=== PATIENT | female | born 1990 | race Caucasian/White ===

== ENCOUNTER 2016-05-31 20:18 | Emergency (ER) | payer MEDICAID ==
[~2016-05-31] VITALS: Ht 175.3 cm; Wt 74.8 kg
[~2016-05-31 20:18] MED LIST: AMOXICILLIN 50500 MG PO; AUGMENTIN 500 M1 TAB PO; BACTRIM DS 8001 TAB PO; IBU-8800 MG PO; LORTAB 5/500 501 TAB PO; MEDROL 4MG. DOSE4 MG PO; NOMEDS; PHENERGAN 25MG.25 M1 PO; PROTONIX40 MG PO; VOLTAREN75 MG PO
--- NOTE | 2016-05-31 20:40 | Urgent Treatment Center Report ---
History of Present Issue Date/Time Seen by Provider 05/31/162036 Visit Reason Pt arrived:Wheelchair Presenting Problem:PT STATES SHE WAS CLIMBING ON A WALL TO GET A STICK WHEN SHE FELL AND LANDED ON HER LEFT HEEL. STATES HAPPENED APPROX 1999 Location if Accident:Home Onset of symptoms date/time:05/31/16 or onset unknown for: Have you (or family members/close friends) recently traveled outside the [place]? N If Yes, where/when: Have you had exposure to infectious disease within the past month? TB? Other? Specify: Source patient Exam Limitations no limitations Comment 25-year-old female presents for LEFT foot pain. Patient states she was climbing up a wall to get a prescription for her nephew and was falling and new if she felt Eros actually hit her head so she came straight down on her LEFT heel. Now complains of LEFT heel pain and is unable to stand on LEFT foot. ALLERGIES Coded Allergies: Penicillins (05/31/16) acetaminophen (From TYLENOL-CODEINE #3) (05/31/16) amoxicillin (05/31/16) codeine (From TYLENOL-CODEINE #3) (05/31/16) Home Medications Reported Medications No Home Medications (NO HOME MEDICATIONS) History Medical History General CAD? No Angina: No [place]: No Hypertension? No Hyperlipidemia? No CHF? No DVT? No PE? No COPD? No Asthma? Yes Anemia? No GERD? No Gastric ulcers? No GI Bleed? No Hernia? No Thyroid Problems? No Hypothyroidism? No CVA? No Seizures? No Diabetes? No Renal Insuffiency? No UTI? No Stones? No BPH? No GB Disease: No Nephritic Syndrome? No Asplenia? No Hepatitis? No Sickle Cell Disease? No Arthritis? No Migraines? No Cataracts? No Glaucoma? No MRSA? No HIV? No TB? No Anxiety? No Depression? No Cancer? 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 2 or more SIRS Criteria Met? B/P:127/86 MAP:99 Creatinine >2.0? UA output<0.5ml/kg/hr for 2 hrs? Platelet count >100,000? Lactate >2.0mmol/1? INR >1.2 or PTT > than 60 sec? Evidence of Organ Dysfunction? Provider documented clinical suspician of infection? Sepsis Criteria Count: 1 Sepsis Risk: General Appearance normal appearance, mild distress Respiratory Status Yes: trachea midline, chest symmetrical. No: respiratory distress. Cardiovascular normal exam, regular rate/rhythm, no peripheral edema, normal peripheral pulses Extremities limited range of motion, LEFT heel tender to palpate. No redness or swelling noted. Neurologic alert, normal exam, oriented x 3 Medical Decision Making LABS/Meds/Orders Pt receiving controlled substance in ED? No Results/Orders Orders Procedure Date/time Status FOOT-LT-3 VIEWS 05/31 2032 Active XRAY/CT/US XRAY/CT/US XRAY foot XR interpretation by reviewed by me Xray Results no fracture seen Comment Instructed patient after radiologist reads if any abnormalities will be notified Departure Departure Time of Disposition 2100 Disposition DC Home or Self Care(routine) Clinical Impression Primary Impression: Sprain and strain Condition STABLE Referrals ZOILA HAJI APRN (Family) Patient Instructions Sprain Additional Instructions Tylenol or Motrin for pain and discomfort. Rest and elevate foot. Ice 20 minutes remove repeat as needed for comfort. Keep Fausto wrap in place no weightbearing until follow up with primary care use crutches as needed Discharge Counseling Counseled pt/family regarding diagnosis, home care, follow up needs at 2102
[2016-05-31 21:09] VITALS: BP 127/86
--- NOTE | 2016-06-01 14:14 | RADIOLOGY REPORT PS360 ---
FOOT-LT-3 VIEWS COMPARISON: Left foot 07/02/2007 HISTORY: Left foot pain after a fall TECHNIQUE: AP lateral and oblique views FINDINGS: There is no fracture or dislocation. The plantar arch is normal. The soft tissues are normal. IMPRESSION: Negative left foot
== END 2016-05-31 21:11 | disposition home or self-care (01) ==
LOC: UTC 20:18
DX: S93.602A Unspecified sprain of left foot, initial encounter (principal); W17.89XA Other fall from one level to another, initial encounter

== ENCOUNTER 2016-08-31 20:43 | Emergency (ER) | payer MEDICAID ==
[~2016-08-31] VITALS: Ht 175.3 cm; Wt 74.8 kg
[2016-08-31] MEDS ORDERED: TYLENOL ES500 MG PO (21:14)
[2016-08-31] MEDS ORDERED: IBUPROFEN 600M600 MG PO (21:15)
[2016-08-31] MEDS ORDERED: APAP/HYDROCODON1 TA9 PO (21:17)
--- NOTE | 2016-08-31 21:30 | Emergency Room Report ---
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 Y Clinical Suspician of Infection? Y Mental Status: 1 - Regular (Normal Baseline) Sepsis Risk:Possible Sepsis Risk Have you (or family members/close friends) recently traveled outside the [place]? N If Yes, where/when: Have you had exposure to infectious disease within the past month? N TB? Other? Specify: Source patient, RN notes reviewed, family, old records Exam Limitations no limitations Comment pt with rate inserter cough and sore thoat with recent dental extraction and she reports sx over the last few days - no rash or vomiting or diarrhea Cardiac Chest Pain Chest pain indicative of cardiac No Timing/Duration this evening Severity moderate ALLERGIES Coded Allergies: Penicillins (05/31/16) acetaminophen (From TYLENOL-CODEINE #3) (05/31/16) amoxicillin (05/31/16) codeine (From TYLENOL-CODEINE #3) (05/31/16) Home Medications Reported Medications No Home Medications (NO HOME MEDICATIONS) Acetaminophen (Tylenol XS 500MG) 1,000 MG PO Q6HP PRN PAIN/FEVER IBUPROFEN MICRONIZED (IBUPROFEN 600MG) 600 MG PO Q8HP PRN FEVER/PAIN HYDROCODONE/ACETAMINOPHEN (Hydrocodon-Acetaminoph 7.5-325) 1 TAB PO Q6HP PRN PAIN History Medical History General CAD? No Angina: No [place]: No Hypertension? No Hyperlipidemia? No CHF? No DVT? No PE? No COPD? No Asthma? Yes Anemia? No GERD? No Gastric ulcers? No GI Bleed? No Hernia? No Thyroid Problems? No Hypothyroidism? No CVA? No Seizures? No Diabetes? No Renal Insuffiency? No End Stage Renal Disease? No UTI? No Stones? No BPH? No GB Disease: No Nephritic Syndrome? No Asplenia? No Hepatitis? No Sickle Cell Disease? No Arthritis? No Migraines? No Cataracts? No Glaucoma? No MRSA? No HIV? No TB? No Anxiety? No Depression? No Cancer? 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 denies: ear discharge, epistaxis, throat swelling. Respiratory see HPI, cough, denies shortness of breath Cardiovascular denies chest pain, denies syncope Gastrointestinal denies abdominal pain, denies diarrhea, denies vomiting Genitourinary denies: dysuria, frequency, hesitancy, hematuria. Musculoskeletal denies back pain, denies joint pain, denies joint swelling, denies neck pain Skin denies rash Psychiatric/Neurological denies headache, denies seizure Physical Exam Vital Signs Vital Signs Date Time Temp Pulse Resp B/P Pulse O2 O2 Flow FiO2 Ox Delivery Rate 08/31 2347 99.1 87 16 122/68 94 / 2333 18 08/31 2306 100.5 86 16 116/68 97 /16 2207 102.4 92 16 102/59 93 08/31 2103 103.1 114 18 115/71 96 - WBC >12,000 or <4,000 or 10% bands? 2 or more SIRS Criteria Met? B/P:122/68 MAP:85 Creatinine >2.0? UA output<0.5ml/kg/hr for 2 hrs? Platelet count >100,000? Lactate >2.0mmol/1? INR >1.2 or PTT > than 60 sec? Evidence of Organ Dysfunction? Provider documented clinical suspician of infection? Y Sepsis Criteria Count: 2 Sepsis Risk: Possible Sepsis Risk General Appearance no apparent distress Eye Exam - bilateral eye PERRL, bilateral eye EOMI Ear, Nose, Throat normal ENT inspection, sl rt sided swelling Neck supple Respiratory Status No: respiratory distress. Lung Sounds bilateral: lungs clear. Cardiovascular regular rate/rhythm, no murmur Peripheral Pulses Pulses normal Yes Gastrointestinal soft Extremities normal inspection Strength 4 Upper Ext (L), 4 Upper Ext (R), 4 Lower Ext (L), 4 Lower Ext (R) Neurologic alert, plexiglas former II-XII nml as tested, no motor/sensory deficits Reflexes Reflexes normal No Mental status normal mood/affect Skin intact Medical Decision Making LABS/Meds/Orders Pt receiving controlled substance in ED? No Results/Orders Laboratory Tests 08/31/160: Sodium 139, Potassium 3.3 L, Chloride 103, Carbon Dioxide 24, BUN 10, Creatinine 0.8, Estimated Creat Clear 126, Estimated GFR (MDRD) 87, Glucose 93, Calcium 8.2 L, Total Bilirubin 0.3, AST 20, ALT 18, Alkaline Phosphatase 63, Total Protein 7.3, Albumin 3.5, Globulin 3.8 H, Albumin/Globulin Ratio 0.9 L, WBC 3.5 L, RBC 4.29, Hgb 13.1, Hct 38.7, MCV 90.4, RDW 12.4, Plt Count 95 L, MPV 10.2, Gran % 75.8, Gran # 2.6, Lymphocytes % 19.5, Monocytes % 4.0, Eosinophils % 0.2, Basophils % 0.4, Lymphocytes # 0.7, Monocytes # 0.1, Eosinophils # 0.0, Basophils # 0.0, PUBS MCHC 33.7, MCH 30.5 Current Medication Orders Sig/Jonelle Start time Last Medication Dose Route Stop Time Status Admin Ceftriaxone Sodium 0 .STK-MED ONE 08/31 2330 DCr IV Ketorolac 0 .STK-MED ONE 08/31 2330 DC Tromethamine .ROUTE Methylprednisolone 0 .STK-MED ONE 08/31 2330 DC Sodium Succinate .ROUTE Sodium Chloride 50 ML .STK-MED ONE 08/31 2330 DC IV Ceftriaxone Sodium 1 GM ONCE ONE 08/31 2314 DCr 08/31 Sodium Chloride 50 ML IV 08/31 2344 2332 Ketorolac 30 MG ONCE ONE 08/315 DC 08/31 Tromethamine IV 09/01 2315 2333 Methylprednisolone 125 MG ONCE ONE 08/31 2314 DC 08/31 Sodium Succinate IV 09/01 2315 233 Sodium Chloride 1,000 ML .STK-MED ONE 08/31 2146 DC IV Sodium Chloride 1,000 ML .Q1H1M 08/31 2144 DC 08/31 IV 08/31 Sodium Chloride 10 ML PRN PRN 08/31 2144 AC IV 09/01 2134 Acetaminophen 0 .STK-MED ONE 08/31 2120 DCr PO Orders Procedure Date/time Status CULTURE, BLOOD 09/01 2135 Active COMPLETE METABOLIC PANEL 09/01 2135 Complete CBC WITH AUTO DIFF 09/01 2135 Complete Departure Departure Time of Disposition 0001 Disposition DC Home or Self Care(routine) Clinical Impression Primary Impression: Febrile illness, acute Condition STABLE Referrals ZIOLA HAJI APRN (Family) Patient Instructions DI for Fever (Symptom) -- Adult Additional Instructions fluids and call pcp in am Discharge Counseling Counseled pt/family regarding diagnosis, test results, medications/RX, follow up needs Prescriptions Current Visit Scripts Azithromycin (Zithromycin (Z-FREDI) 250MG Tab) 250 MG PO DAILY #6 TAB TAKE TWO (2) TABLETS ON DAY 1, THEN ONE (1) TABLET DAY #2 THRU #5 ED Critical Care Critical Care No at 0006
--- NOTE | 2016-08-31 21:30 | Emergency Room Report ---
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 Y Clinical Suspician of Infection? Y Mental Status: 1 - Regular (Normal Baseline) Sepsis Risk:Possible Sepsis Risk Have you (or family members/close friends) recently traveled outside the [place]? N If Yes, where/when: Have you had exposure to infectious disease within the past month? N TB? Other? 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 and she reports sx over the last few days - no rash or vomiting or diarrhea Cardiac Chest Pain Chest pain indicative of cardiac No Timing/Duration this evening Severity moderate ALLERGIES Coded Allergies: Penicillins (05/31/16) acetaminophen (From TYLENOL-CODEINE #3) (05/31/16) amoxicillin (05/31/16) codeine (From TYLENOL-CODEINE #3) (05/31/16) Home Medications Reported Medications No Home Medications (NO HOME MEDICATIONS) Acetaminophen (Tylenol XS 500MG) 1,000 MG PO Q6HP PRN PAIN/FEVER IBUPROFEN MICRONIZED (IBUPROFEN 600MG) 600 MG PO Q8HP PRN FEVER/PAIN HYDROCODONE/ACETAMINOPHEN (Hydrocodon-Acetaminoph 7.5-325) 1 TAB PO Q6HP PRN PAIN History Medical History General CAD? No Angina: No [place]: No Hypertension? No Hyperlipidemia? No CHF? No DVT? No PE? No COPD? No Asthma? Yes Anemia? No GERD? No Gastric ulcers? No GI Bleed? No Hernia? No Thyroid Problems? No Hypothyroidism? No CVA? No Seizures? No Diabetes? No Renal Insuffiency? No End Stage Renal Disease? No UTI? No Stones? No BPH? No GB Disease: No Nephritic Syndrome? No Asplenia? No Hepatitis? No Sickle Cell Disease? No Arthritis? No Migraines? No Cataracts? No Glaucoma? No MRSA? No HIV? No TB? No Anxiety? No Depression? No Cancer? 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 denies: ear discharge, epistaxis, throat swelling. Respiratory see HPI, cough, denies shortness of breath Cardiovascular denies chest pain, denies syncope Gastrointestinal denies abdominal pain, denies diarrhea, denies vomiting Genitourinary denies: dysuria, frequency, hesitancy, hematuria. Musculoskeletal denies back pain, denies joint pain, denies joint swelling, denies neck pain Skin denies rash Psychiatric/Neurological denies headache, denies seizure Physical Exam Vital Signs Vital Signs Date Time Temp Pulse Resp B/P Pulse O2 O2 Flow FiO2 Ox Delivery Rate 08/31 2347 99.1 87 16 122/68 94 / 2333 18 08/31 2306 100.5 86 16 116/68 97 /16 2207 102.4 92 16 102/59 93 08/31 2103 103.1 114 18 115/71 96 - WBC >12,000 or <4,000 or 10% bands? 2 or more SIRS Criteria Met? B/P:122/68 MAP:85 Creatinine >2.0? UA output<0.5ml/kg/hr for 2 hrs? Platelet count >100,000? Lactate >2.0mmol/1? INR >1.2 or PTT > than 60 sec? Evidence of Organ Dysfunction? Provider documented clinical suspician of infection? Y Sepsis Criteria Count: 2 Sepsis Risk: Possible Sepsis Risk General Appearance no apparent distress Eye Exam - bilateral eye PERRL, bilateral eye EOMI Ear, Nose, Throat normal ENT inspection, sl rt sided swelling Neck supple Respiratory Status No: respiratory distress. Lung Sounds bilateral: lungs clear. 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 No Results/Orders Laboratory Tests 08/31/160: Sodium 139, Potassium 3.3 L, Chloride 103, Carbon Dioxide 24, BUN 10, Creatinine 0.8, Estimated Creat Clear 126, Estimated GFR (MDRD) 87, Glucose 93, Calcium 8.2 L, Total Bilirubin 0.3, AST 20, ALT 18, Alkaline Phosphatase 63, Total Protein 7.3, Albumin 3.5, Globulin 3.8 H, Albumin/Globulin Ratio 0.9 L, WBC 3.5 L, RBC 4.29, Hgb 13.1, Hct 38.7, MCV 90.4, RDW 12.4, Plt Count 95 L, MPV 10.2, Gran % 75.8, Gran # 2.6, Lymphocytes % 19.5, Monocytes % 4.0, Eosinophils % 0.2, Basophils % 0.4, Lymphocytes # 0.7, Monocytes # 0.1, Eosinophils # 0.0, Basophils # 0.0, PUBS MCHC 33.7, MCH 30.5 Current Medication Orders Sig/Jonelle Start time Last Medication Dose Route Stop Time Status Admin Ceftriaxone Sodium 0 .STK-MED ONE 08/31 2330 DCr IV Ketorolac 0 .STK-MED ONE 08/31 2330 DC Tromethamine .ROUTE Methylprednisolone 0 .STK-MED ONE 08/31 2330 DC Sodium Succinate .ROUTE Sodium Chloride 50 ML .STK-MED ONE 08/31 2330 DC IV Ceftriaxone Sodium 1 GM ONCE ONE 08/31 2314 DCr 08/31 Sodium Chloride 50 ML IV 08/31 2344 2332 Ketorolac 30 MG ONCE ONE 08/315 DC 08/31 Tromethamine IV 09/01 2315 2333 Methylprednisolone 125 MG ONCE ONE 08/31 2314 DC 08/31 Sodium Succinate IV 09/01 2315 233 Sodium Chloride 1,000 ML .STK-MED ONE 08/31 2146 DC IV Sodium Chloride 1,000 ML .Q1H1M 08/31 2144 DC 08/31 IV 08/31 Sodium Chloride 10 ML PRN PRN 08/31 2144 AC IV 09/01 2134 Acetaminophen 0 .STK-MED ONE 08/31 2120 DCr PO Orders Procedure Date/time Status CULTURE, BLOOD 09/01 2135 Active COMPLETE METABOLIC PANEL 09/01 2135 Complete CBC WITH AUTO DIFF 09/01 2135 Complete Departure Departure Time of Disposition 0001 Disposition DC Home or Self Care(routine) Clinical Impression Primary Impression: Febrile illness, acute Condition STABLE Referrals ZOILA HAJI APRN (Family) Patient Instructions DI for Fever (Symptom) -- Adult Additional Instructions fluids and call pcp in am Discharge Counseling Counseled pt/family regarding diagnosis, test results, medications/RX, follow up needs Prescriptions Current Visit Scripts Azithromycin (Zithromycin (Z-FREDI) 250MG Tab) 250 MG PO DAILY #6 TAB TAKE TWO (2) TABLETS ON DAY 1, THEN ONE (1) TABLET DAY #2 THRU #5 ED Critical Care Critical Care No at 0006
--- OUTSIDE RECORDS SUMMARY | 2016-08-31 21:36 | External Medical Summary Rpt ---
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 ZO AR E LE M -T #3 MP 93 8 DS TA BL ET AC 00 10 10 00 10 3 RI 75 HU Ac ET 09 -0 -0 .0 TE 22 NT ti AM 30 2- 9- 00 79 ER ve IN 15 20 20 AI OP 01 08 08 D NA HE 0 PH NC N- AR Y CO M C D #3 #3 93 8 TA BL ET ME 00 10 10 00 21 6 RI 75 HU Ac TH 60 -0 -0 .0 TE 22 NT ti YL 34 2- 9- 00 76 ER ve NC 59 20 20 AI ED 31 08 08 D NA NI 5 PH NC SO AR Y LO M C NE #3 4 93 8 MG DO SE PK TU 61 09 10 00 20 7 SO 29 HU Ac SS 57 -2 -0 .0 PE 42 NT ti IG 00 5- 9- 00 RS 09 ER ve ON 08 20 20 10 08 08 FA NA 5- 1 ME NC 1. LY Y [address] UG TA BL ET AZ 59 09 10 00 6. 5 RI 75 HU Ac IT 76 -2 -0 00 TE 07 NT ti HR 23 2- 9- 0 73 ER ve OM 06 20 20 AI YC 00 08 08 D NA IN 1 PH NC AR Y 25 M C 0 #3 MG 93 8 TA BL ET QU 52 11 09 03 91 91 RI 70 HU Ac 54 -0 -1 .0 TE 41 NT ti EN 40 1- 1- 00 37 ER ve SE 96 20 20 AI 69 07 08 D NA 0. 1 PH NC 15 AR Y -0 M C .0 #3 3 93 MG 8 TA BL ET NC 00 09 09 00 6. 25 RI 74 BE Ac OV 08 -0 -1 70 TE 80 SS ti EN 51 2- 1- 0 20 ON ve TI 13 20 20 AI L [address] HF 1 PH EP A AR HE 90 M N #3 A MC 93 G 8 IN JAY LE R CE 68 09 09 00 20 10 SO 29 No Ac FD 18 -0 -1 .0 PE 24 t ti IN 00 4- 1- 00 RS 67 Av ve IR 71 20 20 ai 16 08 08 FA la 30 0 ME bl [address] CA UG PS UL E TU 61 09 09 00 20 3 SO 29 No Ac SS 57 -0 -1 .0 PE 21 t ti IG 00 2- 1- 00 RS 63 Av ve ON 08 20 20 ai 10 08 08 FA la 5- 1 ME bl 1. LY e [address] UG TA BL ET 00 08 08 00 20 5 SO 29 No Ac 40 -2 -2 .0 PE 13 t ti 62 1- 8- 00 RS 40 Av ve 04 20 20 ai 11 08 08 FA la 0 ME bl LY e DR UG NC 00 08 08 00 20 5 CL 17 No Ac OM 78 -1 -2 .0 IN 63 t ti ET 11 8- 8- 00 IC 11 Av ve JAY 83 20 20 ai ZI 01 08 08 PH la NE 0 AR bl MA e 25 CY MG TA BL ET AC 00 08 08 00 30 8 RI 74 HU Ac ET 09 -1 -2 .0 TE 58 NT ti AM 30 8- 8- 00 27 ER ve IN 15 20 20 AI OP 01 08 08 D NA HE 0 PH NC N- AR Y CO M C D #3 #3 93 8 TA BL ET AC 00 05 06 00 35 7 RI 73 No Ac YC 09 -1 -0 .0 TE 37 t ti LO 38 6- 5- 00 04 Av ve 94 20 20 AI ai R 30 08 08 D la 40 1 PH bl 0 AR e MG M #3 TA 93 BL 8 ET QU 52 11 06 02 91 91 RI 70 No Ac 54 -0 -0 .0 TE 41 t ti EN 40 1- 5- 00 37 Av ve SE 96 20 20 AI ai 69 07 08 D la 0. 1 PH bl 15 AR e -0 M .0 #3 3 93 MG 8 TA BL ET AC 00 05 05 00 30 8 RI 73 No Ac ET 09 -1 -2 .0 TE 36 t ti AM 30 6- 2- 00 94 Av ve IN 15 20 20 AI ai OP 01 08 08 D la HE 0 PH bl N- AR e CO M D #3 #3 93 8 TA BL ET AC 00 05 05 00 20 5 RI 73 No Ac ET 09 -0 -0 .0 TE 14 t ti AM 30 1- 8- 00 38 Av ve IN 15 20 20 AI ai OP 01 08 08 D la HE 0 PH bl N- AR e CO M D #3 #3 93 8 TA BL ET 17 05 05 05 17 25 RI 67 No Ac 27 -0 -0 .0 TE 87 t ti 00 8- 8- 00 02 Av ve 72 20 20 AI ai 10 07 08 D la 1 PH bl AR e M #3 93 8 ME 60 05 05 00 30 30 RI 73 No Ac LO 50 -0 -0 .0 TE 14 t ti XI 52 1- 8- 00 52 Av ve CA 55 20 20 AI ai M 40 08 08 D la 15 1 PH bl AR e MG M #3 TA 93 BL 8 ET NY 51 04 04 00 12 6 RI [address] 67 -1 -2 0. TE 86 t ti AT 24 1- 4- 00 64 Av ve IN 11 20 20 0 AI ai 70 08 08 D la 10 9 PH bl 0, AR e 00 M 0 #3 UN 93 IT 8 /M L HENSON SP TR 51 04 04 00 5. 10 RI 72 No Ac IA 67 -1 -2 00 TE 89 t ti MC 21 4- 4- 0 54 Av ve IN 26 20 20 AI ai OL 70 08 08 D la ON 5 PH bl E AR e 0. M 1% #[address] E AC 00 03 04 00 20 5 RI 72 No Ac ET 09 -2 -1 .0 TE 64 t ti AM 30 7- 0- 00 31 Av ve IN 15 20 20 AI ai OP 01 08 08 D la HE 0 PH bl N- AR e CO M D #3 #3 93 8 TA BL ET QU 52 11 04 01 91 91 RI 70 No Ac 54 -0 -0 .0 TE 41 t ti EN 40 1- 7- 00 37 Av ve SE 96 20 20 AI ai 69 07 08 D la 0. 1 PH bl 15 AR e -0 M .0 #3 3 93 MG 8 TA BL ET 17 05 03 04 17 25 RI 67 No Ac 27 -0 -2 .0 TE 87 t ti 00 8- 6- 00 02 Av ve 72 20 20 AI ai 10 07 08 D la 1 PH bl AR e M #3 93 8 TR 00 01 03 00 20 5 RI 71 No Ac AM 09 -2 -2 .0 TE 63 t ti AD 30 3- 5- 00 64 Av ve OL 05 20 20 AI ai 80 08 08 D la HC 1 PH bl L AR e 50 M #3 MG 93 8 TA BL ET 17 05 03 03 17 25 RI 67 No Ac 27 -0 -2 .0 TE 87 t ti 00 8- 5- 00 02 Av ve 72 20 20 AI ai 10 07 08 D la 1 PH bl AR e M #3 93 8 FL 00 01 03 00 16 25 RI 71 No Ac UT 05 -2 -2 .0 TE 63 t ti IC 43 3- 5- 00 63 Av ve 27 20 20 AI ai ON 09 08 08 D la E 9 PH bl NC AR e OP M #3 50 93 8 MC G SP RA Y Results Labs Lab Lab Date Result Refere Interp Status Commen Order Detail nces retati t Range on DRUG SCREEN RAPID URINE DIMENSION (12-01-2011 21:08) MEDICAL complet 012 ed 21:08 DIRECTO R: Luis Burden MD ([id number] complet [id number] [id number]) ed 21:08 [place] complet 012 [place], ed 21:08 [place] [id number] complet 012 FOUNDAT ed 21:[address] TEST complet 012 PERFORM ed 21:08 ED BY: [facility] TH complet 012 IS TEST ed 21:08 PERORME D FOR MEDICAL DIAGNOS TIC USE ONLY *UPON complet 012 REQUEST ed 21:08 * *POSITI complet 012 VE ed 21:08 RESULTS SHALL BE SENT TO [facility] FOR CONFIRM ATION* *POSITI complet 012 VE ed 21:08 RESULTS ARE CONSIDE RED PRESUMP TIVE* Oxycodn NEGATIV complet 012 E 100 ed 21:08 ng/mL noid NEG. 50 complet 012 ng/mL ed 21:08 yclidin NEG. 25 complet e 012 ng/mL ed 21:08 10-15-2 NEG. complet 012 2000 ed 21:08 ng/mL ne 10-15-2 NEG. complet 012 300 ed 21:08 ng/mL 10-15-2 NEG. complet 012 300 ed 21:08 ng/mL azepine 10-15-2 NEG. complet s 012 200 ed 21:08 ng/mL ates 10-15-2 NEG. complet 012 200 ed 21:08 ng/mL mines 10-15-2 NEG. complet 012 1000 ed 21:08 ng/mL 10-15-2 DIMENSI complet 012 ON ed 21:08 RAPID URINE DRUG SCREEN URINALYSIS COMPLETE AUTOMATED (12-01-2011 21:08) CULTURE 10-15-2 NOT complet SETUP 012 INDIC ed 21:08 METH OF 10-15-2 C CATCH complet EDWARDO 012 ed 21:08 Crystal 10-15-2 NEGATIV NL: active s 012 E ATIVE NEGATIV 21:08 E Casts 10-15-2 NEGATIV NL: active 012 E ATIVE NEGATIV 21:08 E Yeast 10-15-2 NEGATIV NL: active 012 E ATIVE NEGATIV 21:08 E Mucous 10-15-2 NEGATIV NL: active 012 E ATIVE NEGATIV 21:08 E Bacteri 10-15-2 NEGATIV NL: active a 012 E ATIVE NEGATIV 21:08 E Epi 10-15-2 NEGATIV NL: active Cells 012 E ATIVE NEGATIV 21:08 E Rbc 10-15-2 NEGATIV NL: active 012 E ATIVE NEGATIV 21:08 E Wbc 10-15-2 NEGATIV NL: active 012 E ATIVE NEGATIV 21:08 E MICROSC 10-15-2 See active OPIC 012 Below_ 21:08 Leukocy 10-15-2 NEG NL: complet giovanna 012 ative Negativ ed 21:08 e Nitrite 10-15-2 NEG NL: complet 012 ative Negativ ed 21:08 e Urobili 10-15-2 0.2 - NL: 0.2 complet nogen 012 1.0 - 1.0 ed 21:08 Blood 10-15-2 NEG NL: complet 012 ative Negativ ed 21:08 e Specifi 10-15-2 >=1.030 NL: complet c Gr 012 1.030 1.00 >= ed 21:08 1.030 Ketones TRACE NL: complet 012 ative Negativ ed 21:08 e Bilirub --2 NEG NL: complet in 012 ative Negativ ed 21:08 e Glucose -15-2 NEG NL: complet 012 ative Negativ ed 21:08 e Clarity --2 CLEAR NL: complet 012 ative Negativ ed 21:08 e Protein -15-2 NEG NL: complet 012 ative Negativ ed 21:08 e pH -15-2 5.5 NL: NL: complet 012 ed 21:08 Color --2 LT. NL: complet 012 YELL Negativ ed 21:08 ative e HCG URINE QUAL (12-01-2011 21:08) HCG complet 012 serum ed 21:08 test. advisab complet 012 le, the ed 21:08 test result should be confirm ed using a quantit ative and complet 012 tested ed 21:08 after 48 hours. If waiting 48 hours is not medical ly diagnos complet 012 is of ed 21:08 pregnan cy. A second specime n may need to be obtaine d NOTE: A complet 012 urine ed 21:08 HCG reporte d as Positiv e, <25 mIU/ml is not a definit violeta BETA NEGATIV NL: complet HCG (U) 012 E ATIVE NEGATIV ed 21:08 E HEP PANEL ACUTE (11-27-2011 15:07) Negativ complet 012 e: < ed 15:07 0.8 11-26- complet 012 2.1422. ed 15:07 CW .to LAURA EDOUARD via link [place] complet 012 R. ed 15:07 Hank ward MD 614 complet [id number] ed 15:07 1 russell Melendez 012 [place] ed 15:07 [id number] complet 012 Antunez ed 15:07 Road CB complet 012 refers ed 15:07 to: [facility] Nora 10-11-2 RIBA or complet 012 PCR ed 15:07 testing . between complet 012 1.0 ed 15:07 and 10.9 be confirm ed with additio nal result, complet 012 the ed 15:07 [facility] recomme nds that all s/co ratios 10--2 In complet 012 order ed 15:07 to reduce the inciden ce of a false positiv e --2 . complet 012 ed 15:07 Positiv complet 012 e: > ed 15:07 0.9 11-26-2 UNITS complet 012 OF ed 15:07 MEASURE :s/co ratio Indeter complet 012 minate ed 15:07 0.8 - 0.9 Hep C complet 012 Virus ed 15:07 Ab <0.1 0.0-0.9 CB 2.0724. [email or web address] PLETE.L CTR Hep B complet 012 Core ed 15:07 Ab, IgM Negativ e Negativ e CB 2.0724. [email or web address] PLETE.L CTR HBsAg complet 012 Screen ed 15:07 Negativ e Negativ e CB 2.0724. [email or web address] PLETE.L CTR Hep A complet 012 Ab, IgM ed 15:07 Negativ e Negativ e CB 2.0724. [email or web address] PLETE.L CTR ------- complet 012 ------- ed 15:07 ------- ------- ------- ------- ------- ------- ------- ------- ------- --- TEST complet 012 RESULT ed 15:07 FLAG RANGE UNITS SC Reporte complet 012 d: ed 15:07 012 07:23 Status= F Hepatit complet 012 is ed 15:07 Panel (4) _HEP complet 012 PANEL,A ed 15:07 CUTE (REFL)_ Procedures Procedure DOS Code Location Performer Comment RADEX 47906 SHARON HERRERA FOOT 7 [facility] MINIMUM 3 VIEWS PHYSICAL 24877 SHARON HERRERA THERAPY 7 [facility] EVALUATIO INC INC N HIGH COMPLEX 45 MINS NONEMERG A0120 [facility] [facility] TRNSPRT: 5 [facility] ACT ACT AREA/OTH SYS NONEMERG A0120 [place] TRNSPRT: 5 [facility] ACT ACT AREA/OT SYS DUP-SCAN 78740 [facility] VODIS ARTL MELISSA 5 PRIMARY JR YVAN ABDL/PEL/ HEALTH SCROT&/RP CARE R ORGN LMT URINALYSI 16286 [place] APARICIOOUDIS S 5 PRIMARY YVAN BACTERIUR HEALTH IA SCR CARE XCPT CULTURE/[place] [address] [facility] APARICIOOU[place] TRANSVAGI 5 PRIMARY YVAN NAL HEALTH CARE US PELVIC 85674 [facility] [place] [place] 5 PRIMARY [facility] NONOBSTET HEALTH JOEL CARE REAL-TIME IMAGE COMPLETE URINE 57600 [facility] [place] 5 PRIMARY [facility] TEST HEALTH VISUAL CARE COLOR CMPRSN METHS COLLECTIO 09388 [facility] VENOUS 5 D BLOOD PATHOLOGI VENIPUNCT [facility] URE URINALYSI 38354 [place] APARICIOOUDIS S 5 PRIMARY [facility] BACTERIUR HEALTH IA SCR CARE XCPT CULTURE/D IPSTICK NONEMERG A0120 [place] TRNSPRT: 5 [facility] ACT ACT AREA/[place] [address] LISETTE KNOX ABDOMEN & 4 JOEL JOEL PELVIS W/[place] [address] JANI GUNTER ABDOMEN & 4 CO CO PELVIS [facility] W/CONTRAS T MATERIAL THERAPEUT 92394 JANI GUNTER IC 4 CO CO INJECTION [facility] IV PUSH EACH NEW DRUG THER 40921 JANI GUNTER PROPH/DX 4 CO CO NJX IV HOSPITAL HOSPITAL PUSH SINGLE/1S T SBST/DRUG GONADOTRO 46998 [facility] PIN 4 CO CO CHORIONIC [facility] QUALITATI VE BLOOD 28779 [facility] COUNT 4 CO CO COMPLETE [facility] AUTO&AUTO DIFRNTL WBC NONEMERG A0120 [place] TRNSPRT: 4 [facility] MTN ACT ACT AREA/OTH SYS INFUSION J7050 [facility] NORMAL 4 CO CO SALINE [facility] [place] 250 [place] [address] [facility] INFUSION 4 CO CO HYDRATION [facility] EACH ADDITIONA L HOUR INJECTION J2405 [facility] 1 MG INJECTION J2550 [facility] 4 [facility] UP TO 50 MG COMPREHEN 07695 [facility] SIVE 4 CO CO METABOLIC [facility] PANEL INJECTION J2270 [facility] MORPHINE 4 CO CO SULFATE [facility] UP TO 10 MG URNLS DIP 26832 [facility] 4 CO CO STICK/TAB [facility] [place] [address] [facility] 4 Y Y [facility] BASIC 18244 [facility] 4 Y Y [facility] CALCIUM TOTAL BLOOD 97765 [facility] 4 Y Y [facility] [place] [address] [facility] PHOSPHOR 4 Y Y S [facility] INORGANIC BLOOD 01410 [facility] COUNT 4 Y Y [facility] AUTOMATED BASIC 48794 [facility] 4 Y Y [facility] CALCIUM TOTAL BASIC 72949 [facility] 4 Y Y [facility] CALCIUM TOTAL BLOOD 53762 [facility] COUNT 4 Y Y [facility] [place] [address] [facility] PHOSPHOR 4 Y Y [facility] [place] [address] [facility] 4 Y Y [facility] [place] [address] [place] [address] Y Y HOSPITAL HOSPITAL URNLS DIP 11250 [facility] 4 Y Y STICK/TAB [facility] LET RGNT AUTO [place] [address] [facility] PHOSPHORU 4 Y Y S [facility] INORGANIC BLOOD 17702 [facility] UNIVERS COUNT 4 Y Y COMPLETE [facility] AUTOMATED BASIC 80117 [facility] UNIVERS METABOLIC 4 Y Y PANEL HOSPITAL [facility] CALCIUM TOTAL BASIC 04300 [facility] UNIVERS METABOLIC 4 Y Y PANEL [facility] CALCIUM TOTAL ECG 93507 [facility] ROUTINE 4 Y OF SHANELLE ECG [facility] W/LEAST I PHY 12 LDS I&R ONLY ECG 08574 [facility] ROUTINE 4 Y Y ECG [facility] W/LEAST 12 LDS TRCG ONLY W/O I&R BLOOD 18789 [facility] COUNT 4 Y Y COMPLETE [facility] AUTOMATED NAKIA 91401 [facility] POST-VOID 4 Y Y ING [facility] RESIDUAL URINE&/[place] [address] [facility] PHOSPHORU 4 Y Y S [facility] [place] [address] [facility] MAGNESIUM 4 Y Y [facility] OBSERVATI 97215 [facility] ON/INPATI 4 Y Y [facility] HOSPITAL CARE 40 MINUTES OBSERVATI 58450 [facility] ON/INPATI 4 Y Y [facility] HOSPITAL CARE 40 MINUTES LAPAROSCO 59232 [facility] 4 Y OF JONH [facility]ENDECT [facility] POR[facility] I PHY URNLS DIP 41242 [facility] UNIVERS 4 Y Y STICK/TAB [facility] LET REAGENT AUTO MICROSCOP Y PROTHROMB 32251 [facility] UNIVERSIT IN TIME 4 Y Y HOSPITAL [facility] BLOOD 11919 [facility] TYPING 4 Y Y SEROLOGIC [facility] RH (D) BLOOD 42265 [facility] UNIVERS COUNT 4 Y Y COMPLETE [facility] AUTO&[place] [address] [facility] ABDOMEN & 4 Y Y PELVIS [facility] W/CONTRAS T MATERIAL LEVEL III 40251 [facility] MAT SURG 4 Y OF PATHOLOGY [place] I PHY GROSS&[place] [address] [facility] 4 Y OF PATHOLOGY [place] I PHY GROSS&NAYAN ROSCOPIC EXAM ANTIBODY 28052 [facility] SCREEN 4 Y Y RBC EACH HOSPITAL HOSPITAL SERUM TECHNIQUE BLOOD 23568 [facility] TYPING 4 Y Y SEROLOGIC [facility] ABO ANESTHESI 37322 [facility] FLY A 4 Y OF MAR INTRAPERI [place] TONEAL I PHY LOWER ABD W/LAPS NOS LAPAROSCO 34275 [facility] PY W/RMVL 4 Y Y ADNEXAL [facility] STRUCTURE S INITIAL 77648 [facility] 4 Y OF JONH CARE/DAY [place] 30 I PHY MINUTES BASIC 75422 [facility] METABOLIC 4 Y Y PANEL [facility] CALCIUM TOTAL LEVEL V 62915 [facility] SURG 4 Y OF PATHOLOGY [place] I PHY GROSS&NAYAN ROSCOPIC EXAM LOW 741 [facility] CERVICAL 4 Y Y [facility] SECTION OTHER 7534 [facility] 4 Y Y MONITORIN [facility] G MEDICAL 734 [facility] INDUCTION 4 Y Y OF LABOR [facility] 67246 [facility] BIOPHYSIC 4 Y OF Y OF AL [place] PROFILE I PHY I PHY W/O NON-STRES S TESTING NONEMERG A0120 [place] LICK[place] TRNSPRT: 4 [facility] COMMUNITY MTN ACT ACT AREA/OTH SYS US PREG 94360 [facility] UTERUS 4 Y OF Y OF REAL TIME [place] F/U I PHY I PHY TRNSABDL PER FETUS 69337 [facility] BIOPHYSIC 4 Y OF Y OF AL [place] PROFILE I PHY I PHY NON-STRES S TESTING 01752 [facility] BIOPHYSIC 4 Y OF Y OF AL [place] PROFILE I PHY I PHY W/O NON-STRES S TESTING US PREG 48897 [facility] UTERUS 4 Y OF Y OF REAL [facility] PHY I PHY TRNSABDL PER FETUS NONEMERG A0120 [place] TRNSPRT: 4 [facility] ACT ACT AREA/OT SYS NONEMERG A0120 [place] TRNSPRT: 4 [facility] ACT AREA/OT SYS 65793 [facility] BIOPHYSIC 4 Y OF Y OF AL [facility] PROFILE I PHY I PHY W/O NON-STRES S TESTING NONEMERG A0120 [place] TRNSPRT: 4 [facility] ACT ACT AREA/OT SYS 02163 [facility] NONSTRESS 4 Y OF Y [facility] PHY I PHY DOPPLER 57482 [facility] UNIVERSIT VELOCIMET 4 Y OF Y [facility] PHY I PHY ARTERY NONEMERG A0120 [place] TRNSPRT: 4 [facility] ACT ACT AREA/OT SYS US PREG 71234 [facility] UTERUS 4 Y OF Y OF AFTER 1ST [facility] TRIMEST I PHY I PHY GESTATION 48234 [facility] BIOPHYSIC 4 Y OF Y OF AL [facility] PROFILE I PHY I PHY W/O NON-STRES S TESTING NONEMERG A0120 [place] TRNSPRT: 4 [facility] ACT ACT AREA/OT SYS US PREG 74205 [place] UTERUS 4 PRIMARY JR YVAN AFTER 1ST HEALTH TRIMEST CARE GESTATION IADNA 85741 [facility] NEISSERIA [address] GONORRHOE [facility] AE AMPLIFIED PROBE TQ DOPPLER 82100 [place] VELOCIMET 4 PRIMARY [facility] RY HEALTH UMBILICAL CARE ARTERY CYTP C/V 45066 [facility] AUTO THIN [address] LYR PATHOLOGI PREPJ SCR [facility] MNL RESCR PHYS IADNA 91519 [facility] CHLAMYDIA [address]OLOGI TRACHOMAT [facility] IS AMPLIFIED PROBE TQ SMR PRIM 69455 [place] SRC WET 4 PRIMARY [facility] NFCT AGT CARE TISS JASON 27798 [place] SLIDE 4 PRIMARY [facility] SKN/HR/NL CARE S FNGI/ECTO PARASIT NONEMERG A0120 [place] TRNSPRT: 4 [facility] ACT ACT AREA/OTH SYS 31946 [place] [facility]IC[facility] BIOPHYSIC 4 [facility] PROFILE CARE W/O NON-STRES S TESTING COLLECTIO [address] N VENOUS 4 D BLOOD PATHOLOGI VENIPUNCT [facility] URE PH BODY 64778 [place] FLUID NOT 4 PRIMARY [facility] ELSEWHERE CARE SPECIFIED NONEMERG A0120 LICKING LICKING TRNSPRT: 4 [facility]OTH SYS DOPPLER 07800 [facility] VELOCIMET 4 HOSP MED USH RY CTR MIDDLE CEREBRAL ART US PREG 71302 [facility] UTERUS 4 HOSP MED USH W/DETAIL CTR MARILYN 1ST GESTATION DOPPLER 96138 [facility] VELOCIMET 4 HOSP MED USH RY CTR UMBILICAL ARTERY DOPPLER 04400 [facility] ECHO 4 HOSP MED USH CTR SPECTRAL DISPLAY COMPLETE NONEMERG A0120 LICKING LICKING TRNSPRT: 4 [facility] MTN ACT ACT AREA/OTH SYS NONEMERG A0120 LICKING LICKING TRNSPRT: 4 [facility]OTH SYS URINALYSI 14645 [place]EL[place] S 4 PRIMARY JR [facility] IA SCR CARE XCPT CULTURE/D IPSTICK COLLECTIO 89211 ASSOCIATE KATHLEEN OROPEZA VENOUS 4 D BLOOD PATHOLOGI [place] [address] AMERIPATH LULI SURG 3 [place] INC JAM PATHOLOGY GROSS&NAYAN ROSCOPIC EXAM US PREG 30638 LAMBERS LAMBERS UTERUS 3 DON DON REAL TIME W/IMAGE DCMTN TRANSVAG IADNA 57991 QUEST QUEST GARDNEREL 3 DIAGNOSTI DIAGNOSTI LA CS CS VAGINALIS DIRECT PROBE TQ IADNA 71119 QUEST QUEST TRICHOMON 3 DIAGNOSTI DIAGNOSTI CS CS VAGINALIS DIRECT PROBE TQ CULTURE 56512 QUEST QUEST BACTERIAL 3 DIAGNOSTI DIAGNOSTI CS CS QUANTTATI VE COLONY COUNT URINE IADNA 71556 QUEST QUEST CHLAMYDIA 3 DIAGNOSTI DIAGNOSTI CS CS TRACHOMAT IS AMPLIFIED PROBE TQ IADNA 14381 QUEST QUEST NEISSERIA 3 DIAGNOSTI DIAGNOSTI CS CS GONORRHOE AE AMPLIFIED PROBE TQ IADNA 63125 QUEST QUEST ARY 3 DIAGNOSTI DIAGNOSTI SPECIES CS CS DIRECT PROBE TQ URINE 79014 MARYCARMEN MARYCARMEN 3 KOBE KOBE TEST VISUAL COLOR CMPRSN METHS URNLS DIP 47309 QUEST QUEST 3 DIAGNOSTI DIAGNOSTI STICK/TAB CS CS LET REAGENT AUTO MICROSCOP Y DILATION& 6902 MEADOWVIE MEADOWVIE CURETTAGE 3 W W REGIONAL REGIONAL FOLLOWING MEDICAL MEDICAL DELIVERY/ ANESTHESI 69238 [place] A 3 [facility]/[place] [address] AMERIPATH AMERIPATH SURG 3 [place] INC PATHOLOGY GROSS&NAYAN ROSCOPIC EXAM TX MISSED 52352 MARYCARMEN MARYCARMEN 3 KOBE KOBE FIRST TRIMESTER SURGICAL IADNA 40554 QUEST QUEST CHLAMYDIA 3 DIAGNOSTI DIAGNOSTI CS CS TRACHOMAT IS AMPLIFIED PROBE TQ IADNA 88164 QUEST QUEST TRICHOMON 3 DIAGNOSTI DIAGNOSTI CS CS VAGINALIS DIRECT PROBE TQ IADNA 80254 QUEST QUEST GARDNEREL 3 DIAGNOSTI DIAGNOSTI [place] V[place] [address] ESTEFANIA LEIF ESTEFANIA LEIF 3 UTERUS 14 WK TRANSABDL GESTAT IADNA 74440 QUEST QUEST RAY 3 DIAGNOSTI DIAGNOSTI SPECIES CS CS DIRECT PROBE TQ IADNA 29820 QUEST QUEST NEISSERIA 3 DIAGNOSTI DIAGNOSTI CS CS GONORRHOE AE AMPLIFIED PROBE TQ URNLS DIP 13016 ESTEFANIA LEIF ESTEFANIA LEIF 3 STICK/TAB LET RGNT NON-AUTO W/O MICRSCP URNLS DIP 23430 ESTEFANIA LEIF ESTEFANIA LEIF 3 STICK/TAB LET RGNT NON-AUT[place] [address] ESTEFANIA LEIF ESTEFANIA LEIF 3 UTERUS 14 WK TRANSABDL GESTAT URINE 08310 ESTEFANIA LEIF ESTEFANIA LEIF 3 TEST VISUAL COLOR CMPRSN METHS URINE 36971 [facility]ERR[facility] TEST INC INC VISUAL COLOR CMPRSN METHS MRI BRAIN 65953 RAISA C VAN, BRAIN 0 VAN RAISA STEM W/O W/CONTRAS T MATERIAL RADEX ABD 30473 SHARON HERRERA COMPL 0 [facility] AQT ABD INC INC W/S/E/D VIEWS 1 VIEW BLOOD 08430 SHARON HERRERA COUNT 0 [facility] COMPLETE INC INC AUTO&AUTO DIFRNTL [place] [address] [facility]ASE 0 [facility] INC INC COMPREHEN 81208 [facility] SIVE 0 [facility] [place] [address] [facility]ERRERA AMYLASE 0 [place] [address] [facility] AMYLASE 0 [facility] INC COMPREHEN 95154 [facility] H[facility] SIVE 0 [facility] METABOLIC INC INC PANEL HEPATBL 35032 [facility] DUX SYS 0 [facility] IMG INC INC GLBLDR BLOOD 22764 [facility] CHAMBERSON COUNT 0 [facility] COMPLETE INC INC AUTO&AUTO DIFRNTL WBC ANTIBODY 39550 [facility] HELICOBAC 0 [facility] [place] [address] LYNDON VAN, ABDOMINAL 0 MEDICAL RAISA REAL IMAGING TIME ASSOCIATE W/IMAGE S DOCUMENTA TICURT DESTRUCTI 32290 [place] MCKEMIE ON 9 ALICIA LOBATO, PREMALIGN INTERNAL SAW Singh ANT MED LESION 2-14 EA RADIOLOGI 24171 [facility] C EXAM 9 [facility] CHEST 2 INC INC VIEWS FRONTAL&L ATERAL BLOOD 36952 [facility] COUNT 9 [facility] COMPLETE INC INC AUTO&AUTO DIFRNTL WBC IAADI 22437 [facility] INFLUENZA 9 [facility] B VIRUS INC INC IAADI 03877 [facility] INFFLUENZ 9 [facility] A A VIRUS INC INC PRESSURIZ 86956 [place] MCKEMIE ED/NONPRE 9 ALICIA LOBATO, SSURIZED INTERNAL SAW Samantha INHALATIO MED N TREATMENT ANTIBODY 32841 COMBINED COMBINED CHLAMYDIA 9 PHYSICIAN PHYSICIAN S LAB S LAB CUL BACT 08062 COMBINED COMBINED XCPT 9 PHYSICIAN PHYSICIAN URINE S LAB S LAB BLOOD/STO OL AEROBIC ISOL SMR PRIM 90790 WOMEN'S RIDDLE, SRC WET 9 [facility] [place] [facility] RADEX 65696 [place] SONJA, ANKLE 9 RADIOLOGY SHELL G COMPLETE MINIMUM 3 VIEWS RADEX 36831 [place] SON[place], FOOT 9 RADIOLOGY SHELL G COMPLETE MINIMUM 3 VIEWS SMR PRIM 92346 COMBINED COMBINED SRC WET 9 PHYSICIAN PHYSICIAN MOUNT S LAB S LAB NFCT AGT ANTIBODY 34972 COMBINED COMBINED CHLAMYDIA 9 PHYSICIAN PHYSICIAN S LAB S LAB RADEX 94242 LYNDON JEREL, SPINE 1 9 MEDICAL МАРИЯ P VIEW IMAGING SPECIFY ASSOCIATE LEVEL S RADEX 97254 [facility] SPINE 9 [facility] CERVICAL INC INC [address] [place] [address] [facility]ER[facility] HEAD/BRAI 9 [facility] N W/O INC INC CONTRAST MATERIAL 3D 74828 [facility] RENDERING 9 [facility] W/INTERP INC INC & [place] 3D 74505 [facility] RENDERING 9 [facility] INC INC W/INTERP& POSTPROC DIFF WORK STATION URINE 93488 [facility] 9 [facility] TEST INC [place] [address] [place] JEREL, CERVICAL 9 MEDICAL МАРИЯ P SPINE W/O IMAGING CONTRAST ASSOCIATE MATERIAL S URNLS DIP 23528 [facility] 9 [facility] STICK/TAB INC INC LET REAGENT AUTO MICROSCOP Y BLOOD 38760 [facility]ERRER[facility] COUNT 9 [facility] COMPLETE INC INC AUTO&AUTO DIFRNTL WBC URINE 45836 [facility] 9 [facility] TEST INC INC VISUAL COLOR CMPRSN METHS IADNA 18173 PATHOLOGY PATHOLOGY NEISSERIA 9 & & CYTOLOGY CYTOLOGY GONORRHOE LAB LAB AE AMPLIFIED PROBE TQ IADNA 06480 PATHOLOGY PATHOLOGY CHLAMYDIA 9 & & CYTOLOGY CYTOLOGY TRACHOMAT LAB LAB IS AMPLIFIED PROBE TQ CYTP C/V 79369 PATHOLOGY PATHOLOGY AUTO THIN 9 & & LYR CYTOLOGY CYTOLOGY PREPJ SCR LAB LAB MNL RESCR PHYS SPCL STN 74390 PATHOLOGY PATHOLOGY 2 I&R 9 & & EXCPT CYTOLOGY CYTOLOGY MICROORG/ LAB LAB ENZYME/IM CYT ANES 38962 [facility], UPPER GI 9 ANESTH SAW F ENDOSCOPY [place] [address] SH[facility]ON HERRER[facility] INFUSION 9 [facility] THERAPY INC INC PROPHYLAX IS/[place] [address] SHARON HERRERA INFUSION 9 [facility] THERAPY/P INC INC ROPHYLAXI S /DX 1ST TO 1 HR URINE 25323 SH[facility]ON HERRERA 9 [facility] TEST INC [place] [address] SHARON HERRERA HPYLORI 9 [place] [address] PATHOLOGY PATHOLOGY SURG 9 & & PATHOLOGY CYTOLOGY CYTOLOGY LAB LAB GROSS&NAYAN ROSCOPIC EXAM ESOPHAGOG 4516 SH[facility]ON [facility]ERRER[facility] ASTRODUOD 9 [facility] ENOSCOPY INC INC WITH CLOSED BIOPSY EGD 68087 [place], TRANSORAL 9 MEDICAL BASIM BIOPSY SERV SINGLE/MU FOUNDATIO LTIPLE DESTRUCTI 61496 [place], ON 9 VALLEY JUANITO A PREMALIGN INTERNAL ANT MED LESION 2-14 EA GONADOTRO 17203 [facility] PIN 9 [facility] CHORIONIC INC INC QUALITATI VE GONADOTRO 79269 SH[facility]ON [facility]ERRER[facility] PIN 9 [facility] CHORIONIC INC INC QUANTITAT VIOLETA URINE 44817 [facility] 9 N N TEST [facility] COLOR CMPRSN [place] URNLS DIP 11472 [facility] 9 N N STICK/TAB [facility] [place] [address] SH[facility]ON HERRER[facility] STREPTOCO 9 [facility] CCUS INC INC GROUP A RADIOLOGI 23856 [place] Fermin ARAUJO EXAM 8 MEDICAL RAISA CHEST 2 IMAGING VIEWS ASSOCIATE FRONTAL&L S ATERAL HEPATBL 27987 [place] AMARILYS ARAUJO SYS 8 MEDICAL RAISA [place] [address] SAHRON HERRERA ABDOMINAL 8 [facility] REAL INC INC TIME W/IMAGE LIMITED EXC B9 07096 [facility] LESION 8 , EVA , EVA MRGN XCP SK TG T/A/L 1.1-2.0 CM BASIC 52761 SH[facility]ON HERRERA METABOLIC 8 [facility] PANEL INC INC CALCIUM TOTAL BLOOD 89724 SH[facility]ON HERRERA COUNT 8 [facility] COMPLETE INC INC AUTO&AUTO DIFRNTL WBC URINE 87382 [facility]ERRERA 8 [facility] TEST INC INC VISUAL COLOR CMPRSN [place] URNLS DIP 62316 [facility]ERRER[facility] 8 [facility] STICK/TAB INC INC LET REAGENT AUTO MICROSCOP Y US PELVIC 13556 [facility] BERRIEN[facility] JEREL, 8 MEDICAL МАРИЯ P NONOBSTET IMAGING JOEL IMAGE ASSOCIATE DCMTN S LIMITED/F /U URNLS DIP 37278 SHAORN [facility]ERRERA 8 [facility] STICK/TAB INC INC LET REAGENT AUTO MICROSCOP Y COMPREHEN 66741 SH[facility]ON [facility]ERRERA SIVE 8 [facility] METABOLIC INC INC PANEL URNLS DIP 41730 [facility] SHARON 8 [facility] STICK/TAB INC INC [place] [address] SHARON HERRERA AMYLASE 8 [facility] INC INC BLOOD 65790 SH[facility]ON HERRERA COUNT 8 [facility] COMPLETE INC INC AUTO&AUTO DIFRNTL WBC URINE 91483 [facility]ERRER[facility] 8 [facility] TEST INC INC [place] [address] SH[facility]ON HERRERA LIPASE 8 [facility] INC INC RADIOLOGI 91437 [facility] HERRERA C 8 [facility] EXAMINATI INC INC ON FEMUR 2 VIEWS RADEX 21220 SH[facility]ON [facility]ERRER[facility] ANKLE 8 [facility] COMPLETE INC INC MINIMUM 3 VIEWS URINE 71026 [facility]ERRER[facility] 8 [facility] TEST INC INC VISUAL COLOR CMPRSN [place] RADIOLOGI 66119 [place] VAN C 8 MEDICAL RAISA EXAMINATI IMAGING ON PELVIS ASSOCIATE 1/2 S VIEWS RADIOLOGI 46755 [facility] BERRIEN[facility]ie ARAUJO C 8 MEDICAL RAISA EXAMINATI IMAGING ON TIBIA ASSOCIATE & FIBULA S 2 VIEWS RADEX 59289 [place] VAN, SPINE 8 MEDICAL RAISA LUMBOSACR IMAGING AL ASSOCIATE MINIMUM 4 S VIEWS URNLS DIP 36205 [facility] 8 [facility] STICK/TAB INC INC LET REAGENT AUTO MICROSCOP Y RADEX 46773 [place] JEREL, SPINE 8 MEDICAL МАРИЯ P LUMBOSACR IMAGING AL ASSOCIATE MINIMUM 4 S VIEWS URINE 14145 [facility]ERR[facility] 8 [facility] TEST INC INC VISUAL COLOR CMPRSN [place] RADEX 47020 SH[facility]ON HERRERA FOOT 8 [facility] COMPLETE INC INC MINIMUM 3 VIEWS RADEX 00873 [facility] VAN, ANKLE 8 MEDICAL RAISA COMPLETE IMAGING MINIMUM 3 ASSOCIATE VIEWS S RADEX 03176 [facility] JEREL, HAND 8 MEDICAL МАРИЯ P MINIMUM 3 IMAGING VIEWS ASSOCIATE S DESTRUCTI 24085 [place] RO[place] ON 8 VALLEY JR, PREMALIGN INTERNAL SAW F ANT MED LESION 2-14 EA Encounters Encounter Start End Date Code Location Performer Type Date OFFICE 97156 [facility] 7 7 [facility] T V[facility] INC 10 [facility]UTES [facility] - 7 7 [facility] OUTPATIEN INC T OFFICE 08433 [facility] OUTPATIEN 7 7 HEALTH T VISIT SOLUTIONS 15 IN MINUTES HOSPITAL [facility] - 7 7 [facility] OUTPATIEN INC T OFFICE 87916 NE [facility]JI OUTPATIEN 7 7 HEALTH T NEW 30 SOLUTIONS MINUTES IN OFFICE 21048 MARK HAJI OUTPATIEN 6 6 [facility] NAN T NEW 30 URGENT MINUTES TREAT OFFICE 68287 [facility] OUTPATIEN 6 6 PHYSICIAN NAYAN T VISIT S GROUP 15 MINUTES OFFICE 94725 [place] OUTPATIEN 5 5 PRIMARY JR YVAN T VISIT HEALTH 15 CARE MINUTES OFFICE 50942 [place] OUTPATIEN 5 5 PRIMARY JR YVAN T VISIT HEALTH 25 CARE MINUTES EMERGENCY 32307 [facility] DEPT 4 4 EMMETT VISIT EMERGENCY HIGH PHYS SEVERITY& THREAT [facility] 73950 [facility] 4 4 CO [facility] T VISIT HIGH/URGE NT SEVERITY [facility] 59314 [facility] 4 4 Y T VISIT HOSPITAL 25 MINUTES HOSPITAL UNIVERSIT - 4 4 Y INPATIENT HOSPITAL OFFICE 38483 L[facility]NDON VELOUDIS OUTPATIEN 4 4 PRIMARY JR YVAN T VISIT HEALTH 15 CARE MINUTES OFFICE 66704 L[facility] VELOUDIS OUTPATIEN 4 4 PRIMARY JR YVAN T NEW 60 HEALTH MINUTES CARE EMERGENCY 81490 [facility] 4 4 EMMETT EMMETT DEPARTMEN EMERGENCY EMERGENCY T VISIT PHYSI PHYSI HIGH/URGE NT SEVERITY EMERGENCY 94762 SARAH SMITH DEPT 3 3 CHR CHR VISIT HIGH SEVERITY& THREAT [facility] 3 3 W INPATIENT [facility] OFFICE 35163 ESTEFANIA LEIF OUTPATIEN 3 3 T VISIT 15 MINUTES OFFICE 43521 ESTEFANIA LEIF OUTPATIEN 3 3 T VISIT 15 MINUTES OFFICE 50543 ESTEFANIA LEIF OUTPATIEN 3 3 T VISIT 25 MINUTES OFFICE 08717 [place] ADITHYA OUTPATIEN 0 0 ALICIA NAN T VISIT INTERNAL 15 MEDI MINUTES OFFICE 97018 [place] MCKEMIE OUTPATIEN 0 0 ALICIA LOBATO, T VISIT INTERNAL SAW F 15 MED MINUTES OFFICE 57850 [place] ADITHYA OUTPATIEN 0 0 ALICIA NAN T VISIT INTERNAL 15 MEDI MINUTES HOSPITAL [facility] - 0 0 [facility] OUTPATIEN INC T [facility]OSPITAL [facility] - 0 0 [facility] OUTPATIEN INC T OFFICE 98855 MYNOR MYNOR OUTPATIEN 0 0 SEEMA SEEMA T VISIT 15 MINUTES OFFICE 00155 [place] MYNOR OUTPATIEN 0 0 VALLEY SEEMA T VISIT INTERNAL 15 MEDI MINUTES OFFICE 60705 [place] BESSON, OUTPATIEN 0 0 ALICIA JUANITO A T VISIT INTERNAL 15 MED MINUTES HOSPITAL [facility] - 0 0 [facility] OUTPATIEN INC T OFFICE 01414 [place] BESSON, OUTPATIEN 0 0 ALICIA SOLOMON A T VISIT INTERNAL 15 MED MINUTES HOSPITAL [facility]ON - 0 0 [facility] OUTPATIEN INC T OFFICE 14283 [place] MCKEMIE OUTPATIEN 0 0 ALICIA LOBATO T VISIT INTERNAL SAW F 15 MED MINUTES OFFICE 76540 [place] BESS[place], OUTPATIEN 9 9 ALICIA JUANITO A T VISIT INTERNAL 15 MED MINUTES OFFICE 24766 [place] MCKEMIE OUTPATIEN 9 9 ALICIA LOBATO, T VISIT INTERNAL SAW F 15 MED MINUTES OFFICE 11087 [place] BESSON, OUTPATIEN 9 9 ALICIA SOLOMON A T VISIT INTERNAL 15 MED MINUTES OFFICE 66223 [place] MCKEMIE OUTPATIEN 9 9 ALICIA LOBATO, T VISIT INTERNAL SAW F 10 MED MINUTES HOSPITAL [facility] - 9 9 [facility] OUTPATIEN INC T OFFICE 19110 [place] MCK[place] OUTPATIEN 9 9 ALICIA LOBATO T VISIT INTERNAL SAW F 15 MED MINUTES OFFICE 33440 [place] BESS[place], OUTPATIEN 9 9 ALICIA SOLOMON A T VISIT INTERNAL 15 MED MINUTES OFFICE 23341 [facility], OUTPATIEN 9 9 [facility] T VISIT CLINIC OF 15 MINUTES [facility] 30252 [facility] [place], T 9 9 [facility] EMERGENCY T VISIT PHYS INC MODERATE SEVERITY OFFICE 20248 [place] BESSON, OUTPATIEN 9 9 [facility] JUANITO A T VISIT INTERNAL 15 MED MINUTES OFFICE 69184 [facility], OUTPATIEN 9 9 [facility] [place] J T VISIT CLINIC OF 15 MINUTES [facility] SHARON - 9 9 [facility] OUTPATIEN INC T EMERGENCY 61126 [facility] 9 9 [facility] T VISIT MODERATE SEVERITY EMERGENCY 18791 ZACHARY GALLEGOS, 9 9 EMERGENCY [facility] T VISIT HIGH/URGE ASSOCIATE NT S SEVERITY HOSPITAL SHARON - 9 9 [facility] OUTPATIEN INC T EMERGENCY 28724 SH[facility]ON 9 9 [facility] T VISIT LOW/MODER SEVERITY OFFICE 12856 [place] BESSON, OUTPATIEN 9 9 ALICIA JUANITO A T VISIT INTERNAL 15 MED MINUTES INITIAL 83420 [facility] JANESSA PREVENTIV 9 9 [facility] NEW PT EMMY AGE [age] [facility] YR OFFICE 69703 [place] BESSON, OUTPATIEN 9 9 ALICIA JUANITO A T VISIT INTERNAL 15 MED MINUTES OFFICE 64171 [place] MCKEMIE OUTPATIEN 9 9 Zachary VARGAS JR VISIT INTERNAL SAW F 10 MED MINUTES HOSPITAL SH[facility]ON - 9 9 [facility] OUTPATIEN [facility] SHARON - 9 9 [facility] OUTPATIEN INC T OFFICE 66689 [place] MCKEMIE OUTPATIEN 9 9 Zachary VARGAS JR VISIT INTERNAL SAW F 15 MED MINUTES EMERGENCY 63695 [place] 9 9 N [facility] T VISIT HOSPITAL LOW/MODER SEVERITY EMERGENCY 95484 KSENIA PAYNE, 9 9 [facility] EMERGENCY T VISIT [facility] MODERATE SEVERITY HOSPITAL [place] - 9 9 N OUTPATIEN [facility] T [facility] SHARON - 9 9 [facility] OUTPATIEN INC T OFFICE 68058 [place] MCKEMIE OUTPATIEN 9 9 Zachary VARGAS JR VISIT INTERNAL SAW F 15 MED MINUTES OFFICE 22323 [facility] OUTPATIEN 9 9 , EVA VELASQUEZ T VISIT 15 MINUTES HOSPITAL SH[facility]ON - 8 8 [facility] OUTPATIEN INC T OFFICE 25141 [facility] OUTPATIEN 8 8 , EVA VELASQUEZ T VISIT 15 MINUTES HOSPITAL SHARON - 8 8 [facility] OUTPATIEN INC T OFFICE 31073 [place] MCKEMIE OUTPATIEN 8 8 ALICIA LOBATO T VISIT INTERNAL SAW F 15 MED MINUTES HOSPITAL SHARON - 8 8 [facility] OUTPATIEN INC T EMERGENCY 83296 SH[facility]ON 8 8 [facility] DEPARTMEN INC T VISIT LOW/MODER SEVERITY HOSPITAL SH[facility]ON - 8 8 [facility] OUTPATIEN INC T EMERGENCY 05933 SH[facility]ON 8 8 [facility] DEPARTMEN INC T VISIT MODERATE SEVERITY OFFICE 61903 [facility] CONSULTAT 8 8 , EVA VELASQUEZ ION NEW/ESTAB PATIENT 60 MIN OFFICE 37312 [place] MCKEMIE OUTPATIEN 8 8 ALICIA LOBATO T VISIT INTERNAL SAW F 15 MED MINUTES OFFICE 14554 [place] MCKEMIE OUTPATIEN 8 8 ALICIA LOBATO T VISIT INTERNAL SAW F 15 MED MINUTES OFFICE 61056 [place] TRUMAN OUTPATIEN 8 8 ALICIA Sharma VISIT INTERNAL 10 MED MINUTES HOSPITAL [facility]ON - 8 8 [facility] OUTPATIEN INC T OFFICE 71726 [place] MCKEMIE OUTPATIEN 8 8 ALICIA LOBATO T VISIT INTERNAL SAW F 15 MED MINUTES HOSPITAL SH[facility]ON - 8 8 [facility] OUTPATIEN INC T EMERGENCY 10653 ZAY GARCIA, 8 8 [facility] DEPARTMEN CORPORATI T VISIT ON HIGH/URGE NT SEVERITY EMERGENCY 93283 SH[facility]ON 8 8 [facility] DEPARTMEN INC T VISIT MODERATE SEVERITY OFFICE 67199 [place] MCKEMIE OUTPATIEN 8 8 [facility], T VISIT INTERNAL SAW F 15 MED MINUTES HOSPITAL SHARON - 8 8 [facility] OUTPATIEN INC T EMERGENCY 38078 SHARON 8 8 [facility] DEPARTMEN INC T VISIT MODERATE SEVERITY EMERGENCY 61284 ZAY NGUYENE, 8 8 [facility] RONDAL E DEPARTMEN CORPORATI T VISIT ON HIGH/URGE NT SEVERITY OFFICE 52346 [place] MCKEMIE OUTPATIEN 8 8 AILCIA LOBATO, T VISIT INTERNAL SAW F 15 MED MINUTES OFFICE 66750 [place] MCKEM[place] OUTPATIEN 8 8 ALICIA JR, T VISIT INTERNAL SAW F 15 MED MINUTES OFFICE 97263 [place] MCK[place] OUTPATIEN 8 8 [place] JR, T VISIT INTERNAL SAW F 15 MED MINUTES OFFICE 62707 [place] MCK[place] OUTPATIEN 8 8 [place] JR, T VISIT INTERNAL SAW F 15 MED MINUTES EMERGENCY 55716 SH[facility]ON 8 8 [facility] DEPARTMEN INC T VISIT MODERATE SEVERITY HOSPITAL [facility]ON - 8 8 [facility] OUTPATIEN INC T [facility]OSPITAL SH[facility]ON - 8 8 [facility] OUTPATIEN INC T OFFICE 46724 [place] MCKEM[place] OUTPATIEN 8 8 ALICIA JR, T VISIT INTERNAL SAW F 15 MED MINUTES HOSPITAL SH[facility]ON - 8 8 [facility] OUTPATIEN INC T OFFICE 95857 [place] MCKEMIE OUTPATIEN 8 8 ALICIA JR, T VISIT INTERNAL SAW F 15 MED MINUTES HOSPITAL SH[facility]ON - 8 8 [facility] OUTPATIEN INC T OFFICE 67879 [place] MCKEMIE OUTPATIEN 8 8 ALICIA LOBATO T VISIT INTERNAL SAW F 15 MED MINUTES OFFICE 65602 [place] MCKEMIE OUTPATIEN 8 8 [place] , T VISIT INTERNAL SAW F 15 MED MINUTES OFFICE 87554 [place] MCKEMIE OUTPATIEN 8 8 ALICIA LOBATO T VISIT INTERNAL SAW F 15 MED MINUTES OFFICE 19131 [place] MCKEMIE OUTPATIEN 8 8 ALICIA LOBATO T VISIT INTERNAL SAW F 15 MED MINUTES
--- OUTSIDE RECORDS SUMMARY | 2016-08-31 21:36 | External Medical Summary Rpt ---
Author Author , [facility] Address Unknown Phone [email or web address] Care Team Providers Care Whipped Topping Supervisor Name Role Phone [facility] [place] [facility], Unavailable [...] Unavailable Unavailable [facility] Un[facility] [place] [place] [place] MICHEL JAM, MICHEL JAM Unavailable Unavailable [facility], Unavailable Unavailable [facility] SEEMA, Unavailable [facility]available [facility], Unavailable Unavailable [facility] EL SPICER, EL Unavailable Unavailable NAYAN LEESA GALLEGOS, Unavailable Unavailable LEESA GALLEGOS [facility] Unavailable Unavailable [facility] LINDY GARCIA, Unavailable Unavailable LINDY GARCIA RHONDA G, Unavailable Unavailable SHELL CASILLAS G ALISHA MAT, ALISHA MAT Unavailable Unavailable [facility] Un[facility] Un[facility] INC, [facility] KNOX JOEL, KNOX Unavailable Unavailable JOEL KNOX JOEL, KNOX Unavailable Unavailable JOEL TRICE LAUGHLIN HARVEY, Unavailable Unavailable TRICE [facility], Unavailable Unavailable [facility] ADITHYA HAJI Unavailable Unavailable ADITHYA MENA, ADITHYA Unavailable Unavailable [facility] Un[facility], [facility] Unavailable Unavailable HEALTH CARE, [facility] DAIGLE SHA, DAIGLE SHA Unavailable Unavailable LAMBERS DON, LAMBERS Unavailable Unavailable DON LAMBERS DON, LAMBERS Unavailable Unavailable DON LIUDMILA WAY, Unavailable Unavailable [facility] Unavailable Unavailable [facility], [facility] Unavailable Unavailable INTERNAL MEDI, [facility] SAW NEVAREZ JR Unavailable Unavailable ROQUE Singh JR, WILLIAM F [facility] Unavailable Unavailable MEDICAL, [facility] MEDICAL МАРИЯ BELTRÁN, Unavailable Unavailable МА[facility] BELTR[facility]N WILLIAM F, Unavailable Unavailable SAW GAGNON [facility]US [facility], JESUS Unavailable Unavailable [facility] Unavailable Unavailable URGENT TREAT, [facility]Y [facility]OLOGY Unavailable Unavailable LAB, [facility] [place], BASIM, [place], Unavailable Unavailable BASIM MARYCARMEN KOBE, MARYCARMEN Unavailable Unavailable KOBE MARYCARMEN KOBE, MARYCARMEN Unavailable Unavailable KO[facility], Unavailable Unavailable [facility], [facility]available Unavailable [id number], Unavailable Unavailable [id number] Unavailable Unavailable [id number] [address] [id number], [facility] [id number] # [id number] BRYAN SHANELLE, BRYAN Unavailable Unavailable SHANELLE SCHRAGER JONH, Unavailable Unavailable SCHRAGER JONH SCHULSTAD, EVA, Unavailable Unavailable SCHULSTAD, EVA [facility], Unavailable Unavailable [facility] Unavailable Unavailable EMERGENCY PHYSI, [facility] Unavailable Unavailable EMERGENCY PH[facility], [facility] Unavailable Unavailable SOL[facility] IN, [facility], [facility]available Unavailable [facility], Unavailable Unavailable [facility], Unavailable Unavailable [facility] Unavailable Unavailable [place] [facility], [facility] VELFRITZ JR YVAN, Unavailable Unavailable Domo YVAN [facility], Unavailable Unavailable [facility] Purpose Continuity of Care Document - 02-25-2007 through 2016 Problems Code Diagnosis DOS Provider Status [id number] PAIN IN 05-31-2016 [facility] [facility] [id number] UNSPECIFIED 05-31-2016 [facility] LEFT FOOT INC INITIAL ENCOUNTER [id number] PAIN IN 05-02-2016 [facility] HIP HEALTH SOLUTIONS IN M545 LOW BACK 04-25-2016 [facility] M5417 RADICULOPAT 04-10-2016 [facility] LUMBOSACRAL SOLUTIONS REGION IN R102 PELVIC AND 04-10-2016 [facility] [place] PAIN SOLUTIONS IN H9203 OTALGIA 12-06-2015 [facility] URGENT TREAT J329 CHRONIC 04-05-2015 [facility] SINUSITIS PHYSICIANS UNSPECIFIED GROUP Z9109 OTH ALLERGY 04-05-2015 [facility] STATUS OT PHYSICIANS THAN GROUP RX&BIOLOGIC L SUBSTNC 54591 05-11-2014 [facility] COMMUNITY ACT 6259 UNSPEC 03-08-2014 [place] [facility] W/FEMALE GENITAL ORGANS 15265 ABDOMINAL 03-08-2014 [facility], PRIMARY UNSPECIFIED HEALTH CARE SITE 6262 EXCESSIVE 02-22-2014 [place] [facility] MENSTRUATIO N 6263 PUBERTY 02-22-2014 [facility]LEED[facility] PATHOLOG[facility] 10431 NAUSEA 02-08-2014 [facility] JOEL ALONE 46290 OTHER CHEST 12-28-2013 [facility] PAIN OF [place] [facility] 5409 ACUTE 12-27-2013 [facility] APPENDICITI OF S WITHOUT [place] MENTION PHY PERITONITIS 541 APPENDICITI 12-27-2013 [facility] S, OF UNQUALIFIED [place] PHY 6140 ACUTE 12-27-2013 [facility] SALPINGITIS OF AND [place] OOPHORITIS PHY 7881 DYSURIA 12-27-2013 [facility] PHY 10045 ABDOMINAL 12-27-2013 [facility] PAIN RIGHT OF LOWER [place] QUADRANT PHY 75658 OTHER ACUTE 12-26-2013 [facility] POSTOPERATI VE PAIN 54264 UNSPECIFIED 12-26-2013 [facility] CARIES 6141 CHRONIC 12-26-2013 [facility] OOPHORITIS 97806 OTH CURRENT 12-26-2013 [facility] CCE PP CONDITION/C OMPL 58288 OTHER MAJOR 12-26-2013 [facility] PUERPERAL [facility] INFECTION PP COND/COMP 77306 PAIN IN 12-26-2013 [facility] SHOULDER REGION 09991 OTH SPEC 11-29-2013 [facility] &PLACN OF TL PROBS [place] MGMT MOTH PHY DELIV 2851 ACUTE 11-28-2013 [facility] POSTHEMORRH [facility] AGIC ANEMIA 21362 PREMATURE 11-28-2013 [facility] WITH DELIVERY 08588 MATERNAL 11-28-2013 [facility] WITH DELIVERY 10819 TOBACCO USE 11-28-2013 [facility] D/O [facility] PG CHILDBIRTH/ PP DELIVERED 96957 OTH 11-28-2013 [facility] KNOWN/SUSPE OF CTED [place] ABNORMALITY PHY -NEC-APC/C 86943 POOR 11-28-2013 [facility] AFFECT MANAGEMENT MOTH DELIV 20012 GASTROSCHIS 11-28-2013 [facility] PHY V270 OUTCOME OF 11-28-2013 [facility]OSPITAL SINGLE LIVEBORN 35851 TOB USE D/O 11-03-2013 [facility] COMP PG OF /PP [place] ANTEPARTM PHY COND/COMP 10962 UNS 10-31-2013 [facility] ABNORM MGMT OF MOTH [place] ANTPRTM PHY COND/COMP 07295 OTH NONSPC 10-25-2013 [place] ABN FINDNG PRIMARY RAD&OTH EXM HEALTH CARE BODY STRUCTURE V221 SUPERVISION 10-25-2013 [place] OF OTHER PRIMARY NORMAL HEALTH CARE V7388 SPECIAL SCR 10-25-2013 [facility] EXAM[facility] OTH SPEC CHLAMYDIAL DZ V745 SCREENING 10-25-2013 [facility] EXAMINATION PATHOLOGIST FOR S LLC VENEREAL DISEASE V762 SCREENING 10-25-2013 [facility] FOR PATHOLOGIST MALIGNANT S LLC NEOPLASM OF THE CERVIX V8901 SPCT PROB 10-25-2013 [place] W/AMNIOTIC PRIMARY CAVITY & HEALTH CARE MEMBRANE NOT FOUND 6260 ABSENCE OF 09-19-2013 [place] MENSTRUATIO PRIMARY N HEALTH CARE 86182 09-19-2013 [facility] COMP PATHOLOGIST RECURRENT S LLC PREG LOSS UNS EPIS CARE 58872 09-19-2013 [place] COMP RECUR PRIMARY PREG LOSS HEALTH CARE ANTPRTM COND/COMP 69577 OTHER 09-13-2013 [facility] SPECIFED N EMERGENCY COMPLICATIO PHYSI N ANTEPARTUM 632 MISSED 10-27-2012 [facility] [place] [facility] 12926 UNSPECIFIED 10-27-2012 [facility] ANTEPARTUM CHR HEMORRHAGE ANTEPARTUM 51644 THREATENED 10-20-2012 ELYSIA STEVEN , ANTEPARTUM 6981 PRURITUS OF 06-08-2012 [facility] ORGANS 27964 ASTHMA, 05-06-2012 [place] UNSPECIFIED REGIONAL , MEDICAL UNSPECIFIED STATUS V220 SUPERVISION 05-05-2012 [facility] FIRST V2889 OTHER 04-15-2012 ETSEFANIA YADAV SPECIFIED SCREENING 6268 OTH D/O 04-01-2012 ESTEFANIA LEIF MENSTRUATIO N&OTH ABN BLEED FE GNT TRACT 77651 NAUSEA WITH 04-01-2012 [facility] LEIF VOMITING V7242 04-01-2012 ESTEFANIA LEIF EXAMINATION OR TEST POSITIVE RESULT 460 ACUTE 06-13-2009 [facility] NASOPHARYNG VALLEY ITIS INTERNAL MEDI 462 ACUTE 06-13-2009 [facility] PHARYNGITIS [facility] INTERNAL MEDI 61060 ABDOMINAL 06-13-2009 [facility] OR PELVIC VALLEY SWELLING INTERNAL MASS OR MEDI LUMP LUQ 2141 LIPOMA OF 05-18-2009 [facility] OTHER SKIN VALLEY AND INTERNAL SUBCUTANEOU MED S TISSUE 3829 UNSPECIFIED 04-20-2009 [facility] OTITIS VALLEY MEDIA INTERNAL MEDI 35837 ABDOMINAL 04-20-2009 [facility] PAIN, LEFT VALLEY LOWER INTERNAL QUADRANT MEDI 7840 HEADACHE 04-18-2009 RAISA C VAN 80047 VOMITING 04-18-2009 [facility] V7240 04-18-2009 [facility] EX[facility]INATION [facility] /TEST INC UNCONFIRMED 95606 OTH 04-17-2009 [facility] MIGRAINE [place] W/O INTRACT W/O STATUS MIGRAINOSUS 53107 ABDOMINAL 04-17-2009 [facility] PAIN, SEEMA EPIGASTRIC 490 BRONCHITIS 03-14-2009 [facility] NOT VALLEY SPECIFIED INTERNAL ACUTE OR MED CHRONIC 53709 UNSPECIFIED 03-08-2009 [facility] OTALGIA [place] INTERNAL MED 1330 SCABIES 01-17-2009 [facility] VALLEY INTERNAL MED 74280 DIARRHEA 12-18-2008 [facility] [place] INTERNAL MED 5589 OTH&UNSPEC 12-08-2008 [facility] NONINFECTIO VALLEY INTERNAL GASTROENTER MED ITIS&COLITI S 6829 CELLULITIS 12-08-2008 [facility] AND ABSCESS VALLEY OF INTERNAL UNSPECIFIED MED SITE 21203 UNSPECIFIED 12-04-2008 [facility] VIRAL VAL[facility] WARTS INTERNAL MED 7862 COUGH 11-14-2008 [facility] 5291 GEOGRAPHIC 11-10-2008 [facility] TONGUE [facility] INTERNAL MED 4739 UNSPECIFIED 11-07-2008 [facility] SINUSITIS [place] INTERNAL MED V692 PROBLEMS 10-24-2008 COMBINED RELATED TO PHYSICIANS HIGH-RISK LAB SEXUAL BEHAVIOR 69074 UNSPECIFIED 10-20-2008 [facility] [...] HEALTH SEXUALLY CLINIC OF TRANSMITTED [place] DISEASES [facility] 8470 NECK SPRAIN 08-31-2008 [facility] STRAIN [facility] IM[facility] 8500 CONCUSSION 08-31-2008 [facility] WITH NO [facility]OS[facility] LOSS OF INC CONSCIOUSNE SS E8161 MOTR VEH 08-30-2008 [place] LOSS CNTRL MEDICAL W/O EDWARDO IMAGING HIWAY-INJR ASSOCIATES PSNGR E8495 PLACE OF 08-30-2008 [facility] ASSOC[facility] 28192 ESOPHAGEAL 06-28-2008 [facility] REFLUX [facility] INTERNAL MED 33719 CHLAMYDTRAC 06-01-2008 PATHOLOGY & HOMATIS CYTOLOGY INFECTION LAB LOWER SITES V7231 ROUTINE 06-01-2008 [facility] CL[facility] OF EXAMINATION [place] [facility] 2143 LIPOMA OF 04-18-2008 [facility] INTRA-ABDOM VALLEY INAL ORGANS INTERNAL MED 37909 UNSPECIFIED 04-17-2008 [place] [facility] SERV ESOPHAGITIS FOUNDATIO 67720 ATROPHIC 04-17-2008 PATHOLOGY & GASTRITIS CYTOLOGY WITHOUT LAB MENTION OF HEMORRHAGE 64387 OTHER SPEC 04-17-2008 [place] [facility] GASTRITIS SERV WITHOUT FOUNDATIO MENTION HEMORRHAGE 5533 DIAPHRAGMAT 04-17-2008 [place] [facility] BLAKE W/O SERV MENTION FOUNDATIO OBSTRUCTION /GANGREN 7871 HEARTBURN 04-17-2008 [facility] 96099 ABDOMINAL 04-17-2008 [place] [facility] PAIN, SERV GENERALIZED FOUNDATIO 5750 ACUTE 03-31-2008 [facility] CHOLECYSTIT VAL[facility] IS INTERNAL MED 31050 ABDOMINAL 03-31-2008 [facility] PAIN RIGHT VALLEY UPPER INTERNAL QUADRANT MED 8472 LUMBAR 03-26-2008 [facility] SPR[facility] AND N EMERGENCY STRAIN PHYS INC E9270 OVEREXERTIO 03-26-2008 [facility] N FROM N EMERGENCY SUDDEN PHYS INC STRENUOUS MOVEMENT 4660 ACUTE 02-07-2008 [place] BRONCHITIS [facility] 7804 DIZZINESS 01-20-2008 [facility] AND VALLEY GIDDINESS INTERNAL MED 64835 OTHER 01-10-2008 [facility] DISORDERS VALLEY OF SOFT INTERNAL TISSUE MED 32962 LUNG 01-10-2008 [facility] LACERATION [facility] W/O MENTION INTERNAL OPEN WOUND MED INTO THOR 2149 LIPOMA OF 01-06-2008 SCHULSTAD, UNSPECIFIED EVA SITE 16030 HEMORRHAGE 01-06-2008 [facility] COMPLICATIN [facility] G A INC PROCEDURE NEC 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 INTERNAL MED V258 OTHER 12-09-2007 [facility] SPECIFIED VALLEY CONTRACEPTI INTERNAL VE MED MANAGEMENT 27247 DISORDERS 12-06-2007 [facility] OF SOFT VALLEY TISSUE INTERNAL UNSPECIFIED MED 22693 ACUTE 11-29-2007 [facility] GASTRITIS [employer] MENTION OF HEMORRHAGE 5990 URINARY 11-29-2007 [facility] TRACT [employer] INFECTION [employer] SITE NOT SPECIFIED 6926 CONTACT 11-18-2007 [facility] DERMATITIS& VALLEY OTHER INTERNAL ECZEMA DUE MED TO PLANTS 8488 OTHER 11-18-2007 [facility] SPECIFIED VALLEY SITES OF INTERNAL SPRAINS AND MED STRAINS 97144 CONTUSION 11-14-2007 [place] OF BACK MEDICAL IMAGING ASSOCIATES 34909 CONTUSION 11-14-2007 [place] OF LOWER MEDICAL LEG IMAGING ASSOCIATES 94812 CONTUSION 11-14-2007 [place] OF FOOT MEDICAL IMAGING ASSOCIATES 9248 CONTUSION 11-14-2007 [facility] OF MULTIPLE NATIONAL SITES [employer] E8282 ACC INVLV 11-14-2007 [place] ANIMAL MEDICAL BEING IMAGING RIDDEN INJR ASSOCIATES RIDER ANIMAL E8490 PLACE OF 11-14-2007 [place] OCCURRENCE, MEDICAL HOME IMAGING ASSOCIATES 7242 LUMBAGO 07-22-2007 [facility] VALLEY INTERNAL MED 72153 SPASM OF 07-22-2007 [facility] MUSCLE [facility] INTERNAL MED E8498 OTHER 07-22-[address] [place] [address] OF IMAGING OCCURRENCE ASSOCIATES E9179 OTHER 07-22-2007 [place] STRIKING MEDICAL AGAINST IMAGING W/WO ASSOCIATES SUBSEQUENT FALL 21084 SPRAIN AND 07-02-2007 [facility] STRAIN OF VALLEY UNSPECIFIED INTERNAL SITE OF MED FOOT 06318 UNSPECIFIED 06-20-2007 [facility] SITE OF [facility]OS[facility] ANKLE INC SPRAIN AND STRAIN 9953 ALLERGY 06-17-2007 [facility] UNSPECIFIED VAL[facility] NOT INTERNAL ELSEWHERE MED CLASSIFIED 78465 BOUTONNIERE 05-31-2007 [facility] DEFORMITY [facility] INTERNAL MED 37166 OTHER 03-10-2007 [facility] DISORDERS VALLEY OF INTERNAL EUSTACHIAN MED TUBE 5207 TEETHING 03-10-2007 [facility] SYNDROME VALLEY INTERNAL MED 48008 SEROMA 02-25-2007 [facility] COMPLICATIN [facility] A INTERNAL PROCEDURE MED NEC R10.9 [...] [address] E 9 MD EP MO LY HE OP N DR Cirilo 50 UG MC G SP RA Y AM 00 04 04 0 30 10 SO 34 BE Ac OX 78 -2 -2 .0 PE 15 SS ti IC 12 8- 8- 00 RS 06 ON ve IL 61 20 20 LI [address] N 5 MD EP 50 LY HE [address] Cirilo UG CA PS UL E AC 00 04 04 0 12 3 SO 34 BE Ac ET 40 -2 -2 .0 PE 15 SS ti AM 60 8- 8- 00 RS 07 ON ve IN 48 20 20 OP [address] HE 0 MD EP N- LY HE CO N D DR Kerr #3 UG TA BL ET NE 00 04 04 1 30 30 RI 82 MC Ac XI 18 -0 -0 .0 TE 84 KE ti UM 65 5- 5- 00 90 MD ve 04 [address] [...] 41 10 10 FA NA HE 0 MD NC N- LY Y CO C D [...] ti UM 65 7- 4- 00 51 MD ve 04 [address] 04 24 10 D JR 1 PH 40 AR WI MA LL MG CY IA M CA 03 F PS 93 UL 8 E # 03 93 NE 00 11 02 02 30 30 RI 80 MC Ac XI 18 -1 -1 .0 TE 93 KE ti UM 65 7- 1- 00 51 MD ve 04 [address] [...] 10 10 10 FA NA IN 5 MD NC LY Y [address] MG UG TA BL ET TU 61 01 02 00 20 5 SO 33 HU Ac SS 57 -2 -1 .0 PE 41 NT ti IG 00 7- 1- 00 RS 07 ER ve ON 08 20 20 10 10 10 FA NA 5- 1 MD NC 1. LY Y [address] UG TA BL ET AC 00 01 01 00 30 7 SO 33 HU Ac ET 40 -2 -2 .0 PE 36 NT ti AM 60 1- 8- 00 RS 10 ER ve IN 48 20 20 OP 41 10 10 FA NA HE 0 MD NC N- LY Y CO C D DR #3 UG TA BL ET NE 00 11 01 01 30 30 RI 80 MC Ac XI 18 -1 -2 .0 TE 93 KE ti UM 65 7- 8- 00 51 MD ve 04 [address] [...] 16 10 10 FA NA -B 2 MD NC EN LY Y ZO C CA DR IN UG E EA R DR OP NE 00 11 12 00 30 30 RI 80 MC Ac XI 18 -1 -1 .0 TE 93 KE ti UM 65 7- 7- 00 51 MD ve 04 20 20 AI Juve TALBERT [...] 1% 36 09 09 FA NA 0 MD NC LO LY Y TI C ON DR UG CE 68 12 12 00 20 10 SO 32 HU Ac FD 18 -0 -1 .0 PE 96 NT ti IN 00 2 RS 95 ER ve IR 71 20 20 16 09 09 FA NA 30 0 MD NC 0 LY Y MG C DR CA UG PS UL E MO 00 11 11 00 12 3 RI [...] #3 #3 93 8 TA BL ET MO 68 10 11 00 12 3 RI 80 MC Ac OM 38 -2 -0 .0 TE 62 KE ti ET 20 9- 5- 00 77 MD ve JAY 04 20 20 AI E [...] YL 34 9- 8- 00 76 ve MO 59 20 20 AI NA ED 31 09 09 D TA NI 5 PH LI SO AR E LO M E NE #3 4 93 8 MG DO SE PK CI 00 09 10 00 20 10 RI 80 JU Ac MO 17 -3 -0 .0 TE 22 DY [...] ti HR 23 2- 8- 0 82 MD ve OM 06 20 20 AI E YC 00 09 09 D JR IN 1 PH AR WI 25 M LL 0 #3 IA MG 93 M 8 F TA BL ET MO 50 09 10 00 12 3 SO 32 MC Ac OM 38 -2 -0 0. PE 35 KE ti ET 30 4- 8- 00 RS 03 MD ve JAY 80 20 20 0 E ZI 41 09 09 FA JR NE 6 MD -C LY WI OD LL EI DR IA NE UG M F SY RU P TU 61 09 10 00 20 5 RI 80 MC Ac SS 57 -2 -0 .0 TE 15 KE ti IG 00 5- 8- 00 36 MD ve ON 10 05 20 AI E 10 09 09 D JR 5- 1 PH 1. AR WI 5 M LL MG #3 IA 93 M TA 8 F BL ET HENSON 00 09 10 00 20 10 RI 80 MC Ac LF 60 -2 -0 .0 TE 15 KE ti AM 35 5- 8- 00 33 MD ve ET 78 20 20 AI E HO 12 09 09 D JR XA 8 PH ZO AR WI LE M LL -T #3 IA MP 93 M 8 F DS TA BL ET MO 00 09 10 00 6. 25 RI 80 MC Ac OV 08 -2 -0 70 TE 15 KE ti EN 51 5- 8- 0 34 MD ve TI 13 20 20 AI E L 20 09 09 D JR HF 1 PH A AR WI 90 M LL #3 IA MC 93 M G 8 F IN JAY LE R AV 00 09 10 00 7. 7 RI 80 MC Ac EL 08 -3 -0 00 TE 22 KE ti OX 51 0- 8- 0 72 MD ve 73 20 20 AI E 40 [...] ti ON 10 4- 0- 00 20 MD ve ID 33 20 20 AI E [...] 20 39 09 09 FA NA 4 MD NC LY Y C DR UG NE [...] ti EN 40 6- 6- 00 61 MD ve SE 96 20 20 AI E [...] AI RA 40 09 09 D NA MD 1 PH NC DE AR Y 5 [...] IG 00 3- 6- 00 SI 48 MD ve ON 10 05 20 DE E [...] 10 08 08 FA NA 5- 1 MD NC 1. LY Y 5 C MG [...] gino 5 UG bl e IN C MO 10 10 10 00 15 3 WI 24 No Ac OM 70 -1 -2 .0 LS 50 t ti ET 20 3- 3- 00 ON 90 Av ve JAY 00 20 20 ai ZI [address] la NE 0 UG bl e 25 IN C MG TA BL ET MO 00 09 10 01 6. 25 RI [...] 34 2- 9- 00 76 ER ve MO 59 20 20 AI ED 31 08 [...] 10 08 08 FA NA 5- 1 MD NC 1. LY Y 5 C MG [...] 3 93 MG 8 TA BL ET MO 00 09 09 00 6. 25 RI [...] 16 08 08 FA la 30 0 MD bl [address] CA UG PS UL E TU 61 09 09 00 20 3 SO 29 No Ac SS 57 -0 -1 .0 PE 21 t ti IG 00 2- 1- 00 RS 63 Av ve ON 08 20 20 ai 10 08 08 FA la 5- 1 MD bl 1. LY e [address] UG TA BL ET 00 08 08 00 20 5 SO 29 No Ac 40 -2 -2 .0 PE 13 t ti 62 1- 8- 00 RS 40 Av ve 04 20 20 ai 11 08 08 FA la 0 MD bl LY e DR UG MO 00 08 08 00 20 5 CL [...] 08 D la E 9 PH bl MO AR e OP M #3 50 93 8 MC G SP RA Y Results Labs Lab Lab Date Result Refere Interp Status Commen Order Detail nces retati t Range on DRUG SCREEN RAPID URINE DIMENSION (12-01-2011 21:08) MEDICAL complet 012 ed 21:08 DIRECTO R: Luis Burden MD ([id number] complet 012 [id number]) ed 21:08 [place] complet 012 [place], ed 21:08 [place] [id number] 55 complet 012 FOUNDAT ed 21:[address] TEST complet 012 PERFORM ed 21:08 ED BY: [facility] Laborat ory TH complet 012 IS TEST [...] 1 russell Melendez 012 [place] ed 15:07 [id number] complet 012 [place]une[place] ed 15:07 Road CB complet 012 refers ed 15:07 to: [facility] Nora 10-11-2 RIBA or complet 012 PCR ed 15:07 testing . between complet 012 1.0 ed 15:07 and 10.9 be confirm ed with additio nal result, complet 012 the ed 15:07 [facility] recomme nds that all s/co ratios 10--2 [...] Procedure DOS Code Location Performer Comment RADEX 88053 [facility] FOOT 7 [facility] COMPLETE INC INC MINIMUM 3 VIEWS PHYSICAL 84794 [facility] THERAPY 7 [facility] EVALUATIO INC INC N HIGH COMPLEX 45 MINS NONEMERG A0120 [facility] TRNSPRT: 5 [facility] ACT ACT AREA/OTH SYS NONEMERG A0120 [facility] TRNSPRT: 5 [facility] ACT ACT AREA/OT SYS DUP-SCAN 27329 [facility] VODIS ARTL MELISSA 5 PRIMARY JR YVAN ABDL/PEL/ HEALTH SCROT&/RP CARE R ORGN LMT URINALYSI 55951 [facility] APARICIOOUDIS S 5 PRIMARY YVAN BACTERIUR HEALTH IA SCR CARE XCPT CULTURE/[place] [address] [facility] APARICIOOUDIS TRANSVAGI 5 PRIMARY YVAN NAL HEALTH CARE US PELVIC 55055 [facility] VELOUDIS 5 PRIMARY [facility] NONOBSTET HEALTH JOEL CARE REAL-TIME IMAGE COMPLETE URINE 32303 [facility] VELOUDIS 5 PRIMARY [facility] TEST HEALTH VISUAL CARE COLOR CMPRSN METHS COLLECTIO 31675 ASSOCIATE KATHLE[facility] VENOUS 5 D BLOOD PATHOLOGI VENIPUNCT STS LLC URE URINALYSI 95994 [facility] APARICIOOUDIS S 5 PRIMARY [facility] BACTERIUR HEALTH IA SCR CARE XCPT CULTURE/D IPSTICK NONEMERG A0120 [facility] TRNSPRT: 5 [facility] ACT ACT AREA/[place] [address] LISETTE KNOX ABDOMEN & 4 JOEL JOEL PELVIS W/[place] [address] JANI GUNTER ABDOMEN & 4 CO CO PELVIS [facility] HOSPITAL W/CONTRAS T MATERIAL THERAPEUT 82049 JANI GUNTER IC 4 CO CO INJECTION [facility] HOSP[facility] IV PUSH EACH NEW DRUG THER 02052 JANI GUNTER PROPH/DX 4 CO CO NJX IV HOSPITAL HOSPITAL PUSH SINGLE/1S T SBST/DRUG GONADOTRO 68839 [facility] PIN 4 CO CO CHORIONIC [facility] HOSPITAL QUALITATI VE BLOOD 68266 [facility] COUNT 4 CO CO COMPLETE [facility] AUTO&AUTO DIFRNTL WBC NONEMERG A0120 [facility] TRNSPRT: 4 [facility] MTN ACT ACT AREA/OTH SYS INFUSION J7050 [facility] NORMAL 4 CO CO SALINE [facility] [place] [address] [place] [address] [facility] INFUSION 4 CO CO HYDRATION [facility] EACH ADDITIONA L HOUR INJECTION J2405 [facility] 4 CO CO ONSOLOMON [facility] ON HCL PER 1 MG INJECTION J2550 [facility] 4 [facility] TO 50 MG COMPREHEN [id number] [facility] SIVE 4 CO CO METABOLIC [facility] PANEL INJECTION [id number] [facility] MORPHINE 4 CO CO SUL[facility]ATE [facility] UP TO 10 MG URNLS DIP 42123 [facility] 4 CO CO STICK/TAB [facility] HOSP[facility] [place] [id number] [facility] 4 Y Y [facility] BASIC [id number] [facility] 4 Y Y [facility] CALCIUM TOTAL BLOOD 45935 [facility] 4 Y Y [facility] [place] [address] [facility] PHOSPHOR 4 Y Y S [facility] INORGANIC [facility]LOOD 87512 [facility] COUNT 4 Y Y [facility] AUTOMATED BASIC [id number] [facility] 4 Y Y [facility] CALCIUM TOTAL BASIC 92135 [facility] 4 Y Y [facility] CALCIUM TOTAL [facility]LOOD 99683 [facility] COUNT 4 Y Y [facility] [place] [address] [facility] PHOSPHOR 4 Y [place] [address] [facility] 4 Y Y [facility] [place] [address] [place] [address] Y Y [facility]OSPITAL URNLS DIP 87035 [facility] 4 Y Y STICK/TAB [facility] HOSPITAL LET RGNT AUTO W/[place] [address] [facility] PHOSPHORU 4 Y Y S [facility] INORGANIC BLOOD 75519 [facility] COUNT 4 Y Y COMPLETE [facility] AUTOMATED BASIC 35995 [facility] METABOLIC 4 Y Y PANEL [facility] CALCIUM TOTAL BASIC 26251 [facility] METABOLIC 4 Y Y PANEL [facility] CALCIUM TOTAL ECG 07405 [facility] ROUTINE 4 Y OF SHANELLE ECG [facility] W/LEAST I PHY 12 LDS I&R ONLY ECG [id number] [facility] ROUTINE 4 Y Y ECG [facility] W/LEAST 12 LDS TRCG ONLY W/O I&R BLOOD 38277 [facility] COUNT 4 Y Y COMPLETE [facility] AUTOMATED [place] 701[address] [facility] POST-VOID 4 Y Y ING [facility] RESIDUAL URINE&/[place] [address] [facility] [facility] PHOSPHORU 4 Y Y [place] [address] [facility] MAGNESIUM 4 Y Y [facility] OBSERVATI 86717 [facility] ON/INPATI 4 Y Y [facility] HOSPITAL CARE 40 MINUTES OBSERVATI 73389 [facility] UNIVERSIT ON/INPATI 4 Y Y [facility] HOSP[facility] CARE 40 MINUTES LAPAROSCO 84656 [facility] 4 Y OF JONH [facility]ENDECT [facility] POR[facility] I PHY URNLS DIP 94744 [facility] UNIVERS 4 Y Y STICK/TAB [facility] LET REAGENT AUTO MICROSCOP Y PROTHROMB 06427 [facility]IVERS[facility] IN TIME 4 Y Y [facility] BLOOD 17352 [facility] TYPING 4 Y Y SEROLOGIC [facility] RH (D) BLOOD 96613 [facility] COUNT 4 Y Y COMPLETE [facility] AUTO&[place] [address] [facility] ABDOMEN & 4 Y Y PELVIS [facility] W/CONTRAS T MATERIAL LEVEL III 26204 UN[facility] ALISHA MAT SURG 4 Y OF PATHOLOGY [place] PHY GROSS&[place] [address] [facility] 4 Y OF PATHOLOGY [place] PHY GROSS&NAYAN ROSCOPIC EXAM ANTIBODY 37836 [facility] SCREEN 4 Y Y RBC [facility] H[facility]PITAL SERUM TECHNIQUE BLOOD 00765 [facility] TYPING 4 Y Y SEROLOGIC [facility] HOSPITAL ABO ANESTHESI 94361 UNIVERSIT FLY A 4 Y OF MAR INTRAPERI [place] TONEAL I PHY LOWER ABD W/LAPS NOS LAPAROSCO 72158 [facility] PY W/RMVL 4 Y Y ADNEXAL [facility] STRUCTURE S INITIAL 45128 [facility] 4 Y OF JONH CARE/DAY [place] 30 I PHY MINUTES BASIC 72546 [facility] METABOLIC 4 Y Y PANEL [facility] CALCIUM TOTAL LEVEL V 15462 [facility] SURG 4 Y OF PATHOLOGY [place] I PHY GROSS&NAYAN ROSCOPIC EXAM LOW 741 [facility] CERVICAL 4 Y Y [facility] SECTION OTHER 7534 [facility] 4 Y Y MONITORIN [facility] G MEDICAL 734 [facility] INDUCTION 4 Y Y OF LABOR [facility] 96044 [facility] BIOPHYSIC 4 Y OF Y OF AL [place] PROFILE I PHY I PHY W/O NON-STRES S TESTING NONEMERG A0120 [facility] TRNSPRT: 4 [facility] MTN ACT ACT AREA/OTH SYS US PREG 88842 [facility] UTERUS 4 Y OF Y OF REAL TIME [place] F/U I PHY I PHY TRNSABDL PER FETUS 72790 [facility] BIOPHYSIC 4 Y OF Y OF AL [place] PROFILE I PHY I PHY NON-STRES S TESTING 67138 [facility] BIOPHYSIC 4 Y OF Y OF AL [place] PROFILE I PHY I PHY W/O NON-STRES S TESTING US PREG 68629 UN[facility]ERSIT UNIVERSIT UTERUS 4 Y OF Y [facility] REAL [facility] PHY I PHY TRNSABDL PER FETUS NONEMERG A0120 [facility] L[facility] TRNSPRT: 4 [facility] ACT ACT AREA/OT SYS NONEMERG A0120 [facility] TRNSPRT: 4 [facility][1] ACT AREA/OT SYS 94357 UNIVERSIT UNIVERSIT BIOPHYSIC 4 Y OF Y OF AL [facility] PRO[facility] I PHY I PHY W/O NON-STRES S TESTING NONEMERG A0120 [place] TRNSPRT: 4 [facility] ACT ACT AREA/OT SYS 27384 UNIVERSIT UNIVERSIT NONSTRESS 4 Y OF Y OF TEST [facility] PHY I PHY DOPPLER 67976 UNIVERSIT UNIVERSIT VELOCIMET 4 Y OF Y [facility] PHY ARTERY NONEMERG A0120 [place] L[place] TRNSPRT: 4 [facility] ACT ACT AREA/OT SYS US PREG 31137 UNIVERSIT UNIVERSIT UTERUS 4 Y OF Y OF AFTER 1ST [facility] TRIMEST I PHY I PHY GESTATION 81470 UNIVERSIT UNIVERSIT BIOPHYSIC 4 Y OF Y OF AL [facility] PRO[facility] I PHY I PHY W/O NON-STRES S TESTING NONEMERG A0120 [place] TRNSPRT: 4 [facility] ACT ACT AREA/OT SYS US PREG 44322 [place] UTERUS 4 PRIMARY JR YVAN AFTER 1ST HEALTH TRIMEST CARE GESTATION IADNA 56566 ASSOCIATE ELIAS NEISSERIA [address] PATHOLOGI GONORRHOE [facility] AE AMPLIFIED PROBE TQ DOPPLER 21663 [place] VELOCIMET 4 PRIMARY [facility] RY HEALTH UMBILICAL CARE ARTERY CYTP C/V 16190 ASSOCIATE ELIAS AUTO THIN [address] LYR PATHOLOGI PREPJ SCR STS LLC MNL RESCR PHYS IADNA 68965 ASSOCIATE ELIAS CHLAMYDIA [address] PATHOLOGI TRACHOMAT STS LLC IS AMPLIFIED PROBE TQ SMR PRIM 78876 [place] [facility] SRC WET 4 PRIMARY [facility] NFCT AGT CARE TISS JASON 97991 [place] SLIDE 4 [facility] SKN/HR/NL CARE S FNGI/ECTO PARASIT NONEMERG A0120 [place] LICK[place] TRNSPRT: 4 [facility] ACT ACT AREA/OTH SYS 65579 [place] APARICIOOUDIS BIOPHYSIC 4 PRIMARY [facility] HEALTH PROFILE CARE W/O NON-STRES S TESTING COLLECTIO [address] N VENOUS 4 D BLOOD PATHOLOGI VENIPUNCT STS LLC URE PH BODY 86404 [place] FLUID NOT 4 PRIMARY [facility] HEALTH ELSEWHERE CARE SPECIFIED NONEMERG A0120 [facility] TRNSPRT: [address] [facility]/OTH SYS DOPPLER 99502 [facility] VELOCIMET 4 HOSP MED USH RY CTR MIDDLE CEREBRAL ART US PREG 72705 [facility] UTERUS 4 HOSP MED USH W/DETAIL CTR MARILYN 1ST GESTATION DOPPLER 82992 [facility] VELOCIMET 4 HOSP MED USH RY CTR UMBILICAL ARTERY DOPPLER 09328 [facility] ECHO 4 HOSP MED USH CTR SPECTRAL DISPLAY COMPLETE NONEMERG A0120 [place] TRNSPRT: 4 [facility] MTN ACT ACT AREA/OTH SYS NONEMERG A0120 [place] TRNSPRT: [address] [facility] ACT AREA/OTH SYS URINALYSI 93687 [place] S 4 PRIMARY JR [facility] IA SCR CARE XCPT CULTURE/D IPSTICK COLLECTIO 21341 ASSOCIATE KATHLEEN OROPEZA VENOUS 4 D BLOOD PATHOLOG[place] [address] AMERIPATH LULI SURG 3 [place] INC JAM PATHOLOGY GROSS&NAYAN ROSCOPIC EXAM US PREG 41740 LAMBERS LAMBERS UTERUS 3 DON DON REAL TIME W/IMAGE DCMTN TRANSVAG IADNA 26264 QUEST QUEST GARDNEREL 3 DIAGNOSTI DIAGNOSTI LA CS CS VAGINALIS DIRECT PROBE TQ IADNA 42535 QUEST QUEST TRICHOMON 3 DIAGNOSTI DIAGNOSTI CS CS VAGINALIS DIRECT PROBE TQ CULTURE 46769 QUEST QUEST BACTERIAL 3 DIAGNOSTI DIAGNOSTI CS CS QUANTTATI VE COLONY COUNT URINE IADNA 89795 QUEST QUEST CHLAMYDIA 3 DIAGNOSTI DIAGNOSTI CS CS TRACHOMAT IS AMPLIFIED PROBE TQ IADNA 55750 QUEST QUEST NEISSERIA 3 DIAGNOSTI DIAGNOSTI CS CS GONORRHOE AE AMPLIFIED PROBE TQ IADNA 43434 QUEST QUEST RAY 3 DIAGNOSTI DIAGNOSTI SPECIES CS CS DIRECT PROBE TQ URINE 22427 MARYCARMEN MARYCARMEN 3 KOBE KOBE TEST VISUAL COLOR CMPRSN METHS URNLS DIP 88184 QUEST QUEST 3 DIAGNOSTI DIAGNOSTI STICK/TAB CS CS LET REAGENT AUTO MICROSCOP Y DILATION& 6902 MEADOWVIE MEADOWVIE CURETTAGE 3 W W REGIONAL REGIONAL FOLLOWING MEDICAL MEDICAL DELIVERY/ ANESTHESI 94085 [place] A 3 [facility]/[place] [address] AMERIPATH AMERIPATH SURG 3 [place] INC [place] INC PATHOLOGY GROSS&NAYAN ROSCOPIC EXAM TX MISSED 82341 MARYCARMEN MARYCARMEN 3 KOBE KOBE FIRST TRIMESTER SURGICAL IADNA 90101 QUEST QUEST CHLAMYDIA 3 DIAGNOSTI DIAGNOSTI CS CS TRACHOMAT IS AMPLIFIED PROBE TQ IADNA 84667 QUEST QUEST TRICHOMON 3 DIAGNOSTI DIAGNOSTI CS CS VAGINALIS DIRECT PROBE TQ IADNA 47036 QUEST QUEST GARDNEREL 3 DIAGNOSTI DIAGNOSTI [place] V[place] [address] ESTEFANIA LEIF ESTEFANIA LEIF 3 UTERUS 14 WK TRANSABDL GESTAT IADNA 54069 QUEST QUEST RAY 3 DIAGNOSTI DIAGNOSTI SPECIES CS CS DIRECT PROBE TQ IADNA 32252 QUEST QUEST NEISSERIA 3 DIAGNOSTI DIAGNOSTI CS CS GONORRHOE AE AMPLIFIED PROBE TQ URNLS DIP 57288 ESTEFANIA LEIF ESTEFANIA LEIF 3 STICK/TAB LET RGNT NON-AUTO W/O MICRSCP URNLS DIP 63452 ESTEFANIA LEIF ESTEFANIA LEIF 3 STICK/TAB LET RG[place] [address] ESTEFANIA LEIF ESTEFANIA LEIF 3 UTERUS 14 WK TRANSABDL GESTAT URINE 73003 ESTEFANIA LEIF ESTEFANIA LEIF 3 TEST VISUAL COLOR CMPRSN METHS URINE 49399 [facility]ERRERA 0 [facility] TEST INC INC VISUAL COLOR CMPRSN METHS MRI BRAIN 83164 RAISA C VAN, BRAIN 0 VAN RAISA STEM W/O W/CONTRAS T MATERIAL RADEX ABD 53348 [facility]ERRER[facility] COMPL 0 [facility] AQT ABD INC INC W/S/E/D VIEWS 1 VIEW BLOOD 28229 [facility] HERRER[facility] COUNT 0 [facility] COMPLETE INC INC AUTO&[place] [address] SH[facility]ON HERRER[facility] LIPASE 0 [facility] INC INC COMPREHEN 09904 SH[facility]ON HERRER[facility] SIVE 0 [facility] [address] SH[facility]ON [facility]ERRERA AMYLASE 0 [place] [address] SHARON HERRERA AMYLASE 0 [facility] INC INC COMPREHEN 34370 SH[facility]ON HERRERA SIVE 0 [facility] METABOLIC INC INC PANEL HEPATBL 13458 [facility]ON HERRERA DUX SYS 0 [facility] IMG INC INC GLBLDR BLOOD 57172 SH[facility]ON CHAMBERSON COUNT 0 [facility] COMPLETE INC INC AUTO&AUTO DIFRNTL WBC ANTIBODY 14737 SH[facility]ON HERRERA HELICOBAC 0 [facility] [place] [address] L[place] VAN, ABDOMINAL 0 MEDICAL RAISA REAL IMAGING TIME ASSOCIATE W/IMAGE S DOCUMENTA TICURT DESTRUCTI 11662 [place] MCKEM[place] ON 9 ALICIA LOBATO, PREMALIGN INTERNAL SAW Singh ANT MED LESION 2-14 EA RADIOLOGI 20288 [facility]ON HERRERA C EXAM 9 [facility] CHEST 2 INC INC VIEWS FRONTAL&L ATERAL BLOOD 11895 [facility]ON HERRERA COUNT 9 [facility] COMPLETE INC INC AUTO&AUTO DIFRNTL WBC IAADI 08775 SH[facility]ON HERRERA INFLUENZA 9 [facility] B VIRUS INC INC IAADI 79428 SH[facility]ON HERRERA INFFLUENZ 9 [facility] A A VIRUS INC INC PRESSURIZ 16592 [place] MCKEMIE ED/NONPRE 9 ALICIA LOBATO, SSURIZED INTERNAL SAW Samantha INHALATIO MED N TREATMENT ANTIBODY 19939 COMBINED COMBINED CHLAMYDIA 9 PHYSICIAN PHYSICIAN S LAB S LAB CUL BACT 66733 COMBINED COMBINED XCPT 9 PHYSICIAN PHYSICIAN URINE S LAB S LAB BLOOD/STO OL AEROBIC ISOL SMR PRIM 77016 [facility]EN'S R[facility], SRC WET 9 [facility] AGT [place] [facility] RADEX 24700 [place], ANKLE 9 RADIOLOGY SHELL G COMPLETE MINIMUM 3 VIEWS RADEX 95483 [place] S[place], FOOT 9 RADIOLOGY SHELL G COMPLETE MINIMUM 3 VIEWS SMR PRIM 46513 COMBINED COMBINED SRC WET 9 PHYSICIAN PHYSICIAN MOUNT S LAB S LAB NFCT AGT ANTIBODY 88793 COMBINED COMBINED CHLAMYDIA 9 PHYSICIAN PHYSICIAN S LAB S LAB RADEX 39914 [place] JEREL, SPINE 1 9 MEDICAL МАРИЯ P VIEW IMAGING SPECIFY ASSOCIATE LEVEL S RADEX 81231 SH[facility]ON HERRERA SPINE 9 [facility] CERVICAL INC INC [address] [place] [address] SH[facility]ON HERRERA HEAD/BRAI 9 [facility] N W/O INC INC CONTRAST MATERIAL 3D 27119 SH[facility] HERRER[facility] RENDERING 9 [facility] W/INTERP INC INC & [place] 3D 39605 SHARON HERRERA RENDERING 9 [facility] INC INC W/INTERP& POSTPROC DIFF WORK STATION URINE 35036 SHARON HERRERA 9 [facility] TEST INC [place] [address] [place] J[place], CERVICAL 9 MEDICAL МАРИЯ P SPINE W/O IMAGING CONTRAST ASSOCIATE MATERIAL S URNLS DIP 25892 [facility]ON [facility]ERRERA 9 [facility] STICK/TAB INC INC LET REAGENT AUTO MICROSCOP Y BLOOD 55639 SH[facility]ON HERRERA COUNT 9 [facility] COMPLETE INC INC AUTO&AUTO DIFRNTL WBC URINE 95213 [facility]ON HERRERA 9 [facility] TEST INC INC VISUAL COLOR CMPRSN METHS IADNA 94517 PATHOLOGY PATHOLOGY NEISSERIA 9 & & CYTOLOGY CYTOLOGY GONORRHOE LAB LAB AE AMPLIFIED PROBE TQ IADNA 67258 PATHOLOGY PATHOLOGY CHLAMYDIA 9 & & CYTOLOGY CYTOLOGY TRACHOMAT LAB LAB IS AMPLIFIED PROBE TQ CYTP C/V 91410 PATHOLOGY PATHOLOGY AUTO THIN 9 & & LYR CYTOLOGY CYTOLOGY PREPJ SCR LAB LAB MNL RESCR PHYS SPCL STN 86550 PATHOLOGY PATHOLOGY 2 I&R 9 & & EXCPT CYTOLOGY CYTOLOGY MICROORG/ LAB LAB ENZYME/IM CYT ANES 57636 [facility], UPPER GI 9 ANESTH SAW F ENDOSCOPY OF THE [place] [address] SHARON HERRERA INFUSION 9 [facility] THERAPY INC [place] [address] SHARON HERRERA INFUSION 9 [facility] THERAPY/P INC INC ROPHYLAXI S /DX 1ST TO 1 HR URINE 76240 SH[facility]ON HERRERA 9 [facility] TEST INC [place] [address] SHARON HERRERA HPYLORI 9 [place] [address] PATHOLOGY PATHOLOGY SURG 9 & & PATHOLOGY CYTOLOGY CYTOLOGY LAB LAB GROSS&NAYAN ROSCOPIC EXAM ESOPHAGOG 4516 SH[facility]ON HERRERA ASTRODUOD 9 [facility] ENOSCOPY INC INC WITH CLOSED BIOPSY EGD 73345 [place], TRANSORAL 9 MEDICAL BASIM BIOPSY SERV SINGLE/MU FOUNDATIO LTIPLE DESTRUCTI 96442 [place], ON 9 VALLEY JUANITO A PREMALIGN INTERNAL ANT MED LESION 2-14 EA GONADOTRO 38269 [facility]ON HERRER[facility] PIN 9 [facility] CHORIONIC INC INC QUALITATI VE GONADOTRO 31066 SH[facility]ON HERRER[facility] PIN 9 [facility] CHORIONIC INC INC QUANTITAT VIOLETA URINE 02831 [facility] 9 N N TEST [facility] COLOR CMPRSN METHS URNLS DIP 44993 [facility] 9 N N STICK/TAB [facility] [place] [address] SH[facility]ON HERRERA STREPTOCO 9 [facility] CCUS INC INC GROUP A RADIOLOGI 96644 [place] Fermin ARAUJO EXAM 8 MEDICAL RAISA CHEST 2 IMAGING VIEWS ASSOCIATE FRONTAL&L S ATERAL HEPATBL 27314 [place] AM[place] ARAUJO SYS 8 MEDICAL RAISA [place] [address] SH[facility]ON [facility]ERRER[facility] ABDOMINAL 8 [facility] REAL INC INC TIME W/IMAGE LIMITED EXC B9 40289 [facility] LESION 8 , EVA , EVA MRGN XCP SK TG T/A/L 1.1-2.0 CM BASIC 97959 [facility] HERRER[facility] METABOLIC 8 [facility] PANEL INC INC CALCIUM TOTAL BLOOD 04451 SH[facility]ON HERRERA COUNT 8 [facility] COMPLETE INC INC AUTO&AUTO DIFRNTL WBC URINE 41920 [facility] 8 [facility] TEST INC INC VISUAL COLOR CMPRSN METHS URNLS DIP 10958 [facility] 8 [facility] STICK/TAB INC INC LET REAGENT AUTO MICROSCOP Y US PELVIC 51027 [facility], 8 MEDICAL МАРИЯ P NONOBSTET IMAGING JOEL IMAGE ASSOCIATE DCMTN S LIMITED/F /U URNLS DIP 68323 [facility]ER[facility] 8 [facility] STICK/TAB INC INC LET REAGENT AUTO MICROSCOP Y COMPREHEN 38878 [facility] HERRER[facility] SIVE 8 [facility] METABOLIC INC INC PANEL URNLS DIP 19684 [facility] SH[facility]ON 8 [facility] STICK/TAB INC INC [place] [address] [facility]ON HERRERA AMYLASE 8 [facility] INC INC BLOOD 85780 [facility] HERRER[facility] COUNT 8 [facility] COMPLETE INC INC AUTO&AUTO DIFRNTL WBC URINE 04927 [facility]ERR[facility] 8 [facility] TEST INC INC [place] [address] [facility]ON HERRER[facility] LIPASE 8 [facility] INC INC RADIOLOGI 26287 [facility]ERRER[facility] C 8 [facility] EXAMINATI INC INC ON FEMUR 2 VIEWS RADEX 67376 [facility]ERRER[facility] ANKLE 8 [facility] COMPLETE INC INC MINIMUM 3 VIEWS URINE 39901 [facility]ERRER[facility] 8 [facility] TEST INC INC VISUAL COLOR CMPRSN MET[place] RADIOLOGI 87269 [place] VAN C 8 MEDICAL RAISA EXAMINATI IMAGING ON PELVIS ASSOCIATE 1/2 S VIEWS RADIOLOGI 63283 [facility] ARAU[facility] C 8 MEDICAL RAISA EXAMINATI IMAGING ON TIBIA ASSOCIATE & FIBULA S 2 VIEWS RADEX 79473 [place] VAN, SPINE 8 MEDICAL RAISA LUMBOSACR IMAGING AL ASSOCIATE MINIMUM 4 S VIEWS URNLS DIP 29771 [facility] 8 [facility] STICK/TAB INC INC LET REAGENT AUTO MICROSCOP Y RADEX 85004 [place] J[place], SPINE 8 MEDICAL МАРИЯ P LUMBOSACR IMAGING AL ASSOCIATE MINIMUM 4 S VIEWS URINE 76392 [facility]ERRER[facility] 8 [facility] TEST INC INC VISUAL COLOR CMPRSN METHS RADEX 91081 SH[facility] HERRERA FOOT 8 [facility] COMPLETE INC INC MINIMUM 3 VIEWS RADEX 13098 [facility] VAN, ANKLE 8 MEDICAL RAISA COMPLETE IMAGING MINIMUM 3 ASSOCIATE VIEWS S RADEX 24408 [facility] JEREL, HAND 8 MEDICAL МАРИЯ P MINIMUM 3 IMAGING VIEWS ASSOCIATE S DESTRUCTI 83330 [place] ON 8 VALLEY JR, PREMALIGN INTERNAL SAW F ANT MED LESION 2-14 EA Encounters Encounter Start End Date Code Location Performer Type Date OFFICE 79045 [facility] 7 7 [facility] T V[facility]IT INC 10 MINUTES [facility] - 7 7 [facility] OUTPATIEN INC T OFFICE 96101 [facility] OUTPATI[facility] 7 7 HEALTH T VISIT SOLUTIONS 15 IN MINUTES HOSPITAL [facility] - 7 7 [facility] OUTPATIEN INC T OFFICE 46917 [facility] OUTPATIEN 7 7 HEALTH T NEW 30 SOLUTIONS MINUTES IN OFFICE 10162 [facility] OUTPATIEN 6 6 [facility] NAN T NEW 30 URGENT MINUTES TREAT OFFICE 89907 [facility] OUTPATIEN 6 6 PHYSICIAN NAYAN T VISIT S GROUP 15 MINUTES OFFICE 77444 [place] OUTPATIEN 5 5 PRIMARY JR YVAN T VISIT HEALTH 15 CARE MINUTES OFFICE 88064 [place] OUTPATIEN 5 5 PRIMARY JR YVAN T VISIT HEALTH 25 CARE MINUTES EMERGENCY 21106 [facility] DEPT 4 4 EMMETT VISIT EMERGENCY HIGH PHYS SEVERITY& THREAT [facility] - 4 4 CO [facility] T EMERGENCY 30398 [facility] 4 4 [facility] T VISIT HIGH/URGE NT SEVERITY [facility]OSPITAL [facility] - 4 4 [facility] T OFF[facility] 23533 [facility] 4 4 Y T VISIT HOSPITAL 25 MINUTES HOSPITAL UNIVERSIT - 4 4 Y INPATIENT HOSPITAL OFFICE 77835 [place] VELOUDIS OUTPATIEN 4 4 PRIMARY JR YVAN T VISIT HEALTH 15 CARE MINUTES OFFICE 27445 [place] V[place] OUTPATIEN 4 4 PRIMARY JR YVAN T NEW 60 HEALTH MINUTES CARE EMERGENCY 85922 [facility] 4 4 EMMETT EMMETT DEPARTMEN EMERGENCY EMERGENCY T VISIT PHYSI PHYSI HIGH/URGE NT SEVERITY EMERGENCY 80986 SARAH SMITH DEPT 3 3 CHR CHR VISIT HIGH SEVERITY& THREAT [facility] W [facility]IENT [facility] OFFICE 82474 ESTEFANIA LEIF OUTPATIEN 3 3 T VISIT 15 MINUTES OFFICE 36309 ESTEFANIA LEIF OUTPATIEN 3 3 T VISIT 15 MINUTES OFFICE 95954 ESTEFANIA LEIF OUTPATIEN 3 3 T VISIT 25 MINUTES OFFICE 09626 [place] ADITHYA OUTPATIEN 0 0 ALICIA NAN T VISIT INTERNAL 15 MEDI MINUTES OFFICE 74235 [place] MCKEM[place] OUTPATIEN 0 0 ALICIA LOBATO, T VISIT INTERNAL SAW F 15 MED MINUTES OFFICE 03577 [place] ADITHYA OUTPATIEN 0 0 ALICIA NAN T VISIT INTERNAL 15 MEDI MINUTES HOSPITAL [facility] - 0 0 [facility] OUTPATIEN INC T HOSPITAL [facility]ON - 0 0 [facility] OUTPATIEN INC T OFFICE 54429 MYNOR MYNOR OUTPATIEN 0 0 SEEMA SEEMA T VISIT 15 MINUTES OFFICE 98568 [place] MYNOR OUTPATIEN 0 0 VALLEY SEEMA T VISIT INTERNAL 15 MEDI MINUTES OFFICE 56580 [place] BESSON, OUTPATIEN 0 0 ALICIA JUANITO A T VISIT INTERNAL 15 MED MINUTES HOSPITAL [facility]ON - 0 0 [facility] OUTPATIEN INC T OFFICE 59233 [place] BESS[place], OUTPATIEN 0 0 ALICIA SOLOMON A T VISIT INTERNAL 15 MED MINUTES HOSPITAL [facility]ON - 0 0 [facility] OUTPATIEN INC T OFFICE 09783 [place] MCKEMIE OUTPATIEN 0 0 ALICIA LOBATO T VISIT INTERNAL SAW F 15 MED MINUTES OFFICE 73119 [place], OUTPATIEN 9 9 ALICIA JUANITO A T VISIT INTERNAL 15 MED MINUTES OFFICE 36646 [place] MCKEM[place] OUTPATIEN 9 9 ALICIA LOBATO, T VISIT INTERNAL SAW F 15 MED MINUTES OFFICE 45538 [place] B[place], OUTPATIEN 9 9 ALICIA SOLOMON A T VISIT INTERNAL 15 MED MINUTES OFFICE 69304 [place] MCK[place] OUTPATIEN 9 9 ALICIA LOBATO, T VISIT INTERNAL SAW F 10 MED MINUTES HOSPITAL [facility]ON - 9 9 [facility] OUTPATIEN INC T OFFICE 10733 [place] OUTPATIEN 9 9 ALICIA LOBATO T VISIT INTERNAL SAW F 15 MED MINUTES OFFICE 67299 [place], OUTPATIEN 9 9 ALICIA SOLOMON A T VISIT INTERNAL 15 MED MINUTES OFFICE 35567 [facility], OUTPATIEN 9 9 [facility] [place] J T VISIT CLINIC OF 15 MINUTES [facility] EMERGENC[facility] DEPARTMENT EMERGENCY 46490 [facility] K[facility], T 9 9 [facility] EMERGENCY T VISIT PHYS INC MODERATE SEVERITY OFFICE 49774 [place] BESSON, OUTPATIEN 9 9 [place] JUANITO A T VISIT INTERNAL 15 MED MINUTES OFFICE 12913 [facility], OUTPATIEN 9 9 [facility] [place] J T VISIT CLINIC OF 15 MINUTES [facility] EM[facility]PART[facility] - 9 9 [facility] T EMERGENCY 53584 [facility] 9 9 [facility] T VISIT MODERATE SEVERITY EMERGENCY 85998 ZACHARY GALLEGOS, 9 9 EMERGENCY [facility] T VISIT HIGH/URGE ASSOCIATE NT S SEVERITY HOSPITAL [facility] - 9 9 [facility] INC T EMERGENCY 03935 [facility] 9 9 [facility] T VISIT LOW/MODER SEVERITY OFFICE 75674 [facility], OUTPATIEN 9 9 ALICIA JUANITO A T VISIT INTERNAL 15 MED MINUTES INITIAL 81008 WOMEN'S JANESSA PREVENTIV 9 9 [facility] NEW PT EMMY AGE 12-17 [facility] YR OFFICE 57400 [facility], OUTPATIEN 9 9 ALICIA JUANITO A T VISIT INTERNAL 15 MED MINUTES OFFICE 48794 [facility] MCKEMIE OUTPATIEN 9 9 Zachary VARGAS JR VISIT INTERNAL SAW F 10 MED MINUTES HOSPITAL [facility] - 9 9 [facility] OUTPATIEN [facility] HOSPITAL [facility] - 9 9 [facility] OUTPATI[facility] INC T OFFICE 05012 [facility] OUTPATIEN 9 9 Zachary VARGAS JR VISIT INTERNAL SAW F 15 MED MINUTES EMERGENCY 97761 [place] 9 9 N [facility] T VISIT HOSPITAL LOW/MODER SEVERITY EMERGENCY 88576 KSENIA PAYNE, 9 9 [facility] EMERGENCY T VISIT [facility] MODERATE SEVERITY HOSP[facility] [place] - 9 9 N OUTPATIEN [facility] T [facility] HOSPITAL [facility] - 9 9 [facility] OUTPATIEN INC T OFFICE 70283 [facility] OUTPATIEN 9 9 Zachary VARGAS JR VISIT INTERNAL SAW F 15 MED MINUTES OFFICE 93222 [facility] OUTPATIEN 9 9 , EVA VELASQUEZ T VISIT 15 MINUTES HOSPITAL [facility] - 8 8 [facility] INC T OFFICE 75637 [facility] OUTPATIEN 8 8 , EVA VELASQUEZ T VISIT 15 MINUTES HOSPITAL [facility] - 8 8 [facility] OUTPATIEN INC T OFFICE 39138 [facility] [facility] OUTPATIEN 8 8 ALICIA LOBATO T VISIT INTERNAL SAW F 15 MED MINUTES HOSPITAL [facility] - 8 8 [facility] OUT[facility] INC T EMERGENCY 39332 [facility] 8 8 [facility] DEPARTMEN INC T VISIT LOW/MODER SEVERITY HOSPITAL [facility] - 8 8 [facility] OUTPATIEN INC T EMERGENCY 86188 [facility] 8 8 [facility] DEPARTMEN INC T VISIT MODERATE SEVERITY OFFICE 38226 [facility] CONSULTAT 8 8 , EVA VELASQUEZ ION NEW/ESTAB PATIENT 60 MIN OFFICE 08117 [facility] OUTPATIEN 8 8 ALICIA LOBATO T VISIT INTERNAL SAW F 15 MED MINUTES OFFICE 61619 [facility] OUTPATIEN 8 8 ALICIA LOBATO T VISIT INTERNAL SAW F 15 MED MINUTES OFFICE 09388 [facility] TRUMAN OUTPATIEN 8 8 ALICIA Sharma VISIT INTERNAL 10 MED MINUTES [facility]OSPITAL [facility] - 8 8 [facility] OUTPATI[facility] INC T OFFICE 19701 [facility] [facility] OUTPATIEN 8 8 ALICIA LOBATO T VISIT INTERNAL SAW F 15 MED MINUTES HOSPITAL [facility] - 8 8 [facility] OUTPATI[facility] INC T EMERGENCY 07684 ZAY GARCIA, 8 8 [facility] DEPARTMEN CORPORATI T VISIT ON HIGH/URGE NT SEVERITY EMERGENCY 45926 [facility] 8 8 [facility] INC T VISIT MODERATE SEVERITY OFFICE 25363 [facility] [facility] OUTPATIEN 8 8 [facility], T VISIT INTERNAL SAW F 15 MED MINUTES HOSPITAL [facility] - 8 8 [facility] OUTPATI[facility] INC T EMERGENCY 16768 [facility] 8 8 [facility] DEPARTMEN INC T VISIT MODERATE SEVERITY EMERGENCY 54692 ZAY NGUYENE, 8 8 [facility] E DEPARTMEN CORPORATI T VISIT ON HIGH/URGE NT SEVERITY OFFICE 24155 [facility] MCK[facility] OUTPATIEN 8 8 ALICIA LOBATO, T VISIT INTERNAL SAW F 15 MED MINUTES OFFICE 16803 [facility] MCK[facility] OUTPATIEN 8 8 ALICIA JR, T VISIT INTERNAL SAW F 15 MED MINUTES OFFICE 51105 [facility] OUTPATIEN 8 8 ANSONIA JR, T VISIT INTERNAL SAW F 15 MED MINUTES OFFICE 08581 [facility] OUTPATIEN 8 8 ANSONIA JR, T VISIT INTERNAL SAW F 15 MED MINUTES EMERGENCY 12104 [facility] 8 8 [facility] [facility]ISIT MODER[facility]VERITY [facility] [id number] [facility] 8 8 ALICIA JR, T VISIT INTERNAL SAW F 15 MED MINUTES [facility] [id number] [facility] 8 8 [facility] JR, T VISIT INTERNAL SAW F 15 MED MINUTES [facility] [id number] [facility] 8 8 [facility] LOBATO T VISIT INTERNAL SAW F 15 MED MINUTES OFFICE [id number] [facility] 8 8 ANSONIA , T VISIT INTERNAL SAW F 15 MED MINUTES OFFICE [id number] [facility] 8 8 [facility] LOBAT[facility] T VISIT INTERNAL SAW F 15 MED MINUTES OFFICE [id number] [facility] 8 8 [facility] LOBAT[facility] T VISIT INTERNAL SAW F 15 MED MINUTES
--- OUTSIDE RECORDS SUMMARY | 2016-08-31 21:43 | External Medical Summary Rpt ---
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 [facility] MAGNESIUM 4 Y [facility] [address] [facility] MAGNESIUM 4 Y Y [facility] [place] [address] [facility] POST-VOID 4 Y Y [facility] RESIDUAL URINE&/BL ADDER CAP BASIC 85587 [facility] METABOLIC 4 Y Y PANEL [facility] CALCIUM TOTAL OBSERVATI 01108 [facility] ON/INPATI 4 Y Y [facility] CARE [address] [place] [address] [facility] PHOSPHORU 4 Y Y S [facility] INORGANIC BLOOD 86753 [facility] UNIVERS COUNT 4 Y Y COMPLETE [facility] AUTOMATED ECG 04802 [facility] ROUTINE 4 Y Y ECG [facility] W/LEAST 12 LDS TRCG ONLY W/O I&R ECG 67262 [facility] ROUTINE 4 Y OF SHANELLE ECG [place] W/LEAST I PHY 12 LDS I&R ONLY BLOOD 12235 [facility] COUNT 4 Y Y COMPLETE [facility]OSPITAL HOSPITAL AUTO&[place] [address] [facility] ABDOMEN & 4 Y Y PELVIS [facility] W/CONTRAS T MATERIAL URNLS DIP 44914 [facility] 4 Y Y STICK/TAB [facility] LET REAGENT AUTO MICROSCOP Y PROTHROMB 76198 [facility] IN TIME 4 Y Y [facility] BLOOD 87971 [facility] TYPING 4 Y Y SEROLOGIC [facility] RH (D) LAPAROSCO 33308 [facility] PY W/RMVL 4 Y Y ADNEXAL [facility] STRUCTURE S LAPAROSCO 72795 [facility] 4 Y OF JONH APPENDECT [place] PORSCHE I PHY LEVEL III 98339 [facility] MAT SURG 4 Y OF PATHOLOGY [place] I PHY GROSS&[place] [address] [facility] MAT SURG 4 Y OF PATHOLOGY [place] I PHY GROSS&NAYAN ROSCOPIC EXAM ANESTHESI 15426 [facility] FLY A 4 Y OF MAR INTRAPERI [place] TONEAL I PHY LOWER ABD W/LAPS NOS ANTIBODY 04879 [facility] SCREEN 4 Y Y RBC EACH HOSPITAL HOSPITAL SERUM TECHNIQUE BLOOD 83418 [facility] TYPING 4 Y Y SEROLOGIC [facility] ABO OBSERVATI 89121 [facility] ON/INPATI 4 Y Y ENT [facility] HOSPITAL CARE 40 MINUTES BASIC 08215 [facility] METABOLIC 4 Y Y PANEL [facility] CALCIUM TOTAL INITIAL 91918 [facility] 4 Y OF JONH CARE/DAY [place] 30 I PHY MINUTES LEVEL V 02225 [facility] SHA SURG 4 Y OF PATHOLOGY [place] I PHY GROSS&NAYAN ROSCOPIC EXAM LOW 741 [facility] CERVICAL 4 Y Y [facility] SECTION MEDICAL 734 [facility] INDUCTION 4 Y Y OF LABOR [facility] NONEMERG A0120 LICKING LICKING TRNSPRT: 4 [facility] [employer] [facility] COMMUNITY MTN ACT ACT AREA/OTH SYS OTHER 7534 [facility] 4 Y Y [facility] [place] P[place] 73969 [facility] UTERUS 4 Y OF Y OF REAL TIME [place] F/U I PHY I PHY TRNSABDL PER FETUS 67927 [facility] BIOPHYSIC 4 Y OF Y OF AL [place] PROFILE I PHY I PHY W/O NON-STRES S TESTING 92427 [facility] BIOPHYSIC 4 Y OF Y OF AL [place] PROFILE I PHY I PHY NON-STRES S TESTING 37245 [facility] BIOPHYSIC 4 Y OF Y OF AL [place] PROFILE I PHY I PHY W/O NON-STRES S TESTING US PREG 88955 [facility] UTERUS 4 Y OF Y OF REAL TIME [place] F/U I PHY I PHY TRNSABDL PER FETUS NONEMERG A0120 LICKING LICKING TRNSPRT: 4 [facility] MTN ACT ACT AREA/OTH SYS NONEMERG A0120 LICKING LICKING TRNSPRT: 4 [facility] MTN ACT ACT AREA/OTH SYS 43905 [facility] BIOPHYSIC 4 Y OF Y OF AL [place] PROFILE I PHY I PHY W/O NON-STRES S TESTING 51485 [facility] NONSTRESS 4 Y OF Y OF TEST [place] I PHY I PHY NONEMERG A0120 LICKING LICKING TRNSPRT: 4 [facility] MTN ACT ACT AREA/OTH SYS NONEMERG A0120 LICKING LICKING TRNSPRT: 4 [facility] MTN ACT ACT AREA/OTH SYS DOPPLER 88095 [facility] VELOCIMET 4 Y OF Y OF RY [place] UMBILICAL I PHY I PHY ARTERY US PREG 86976 [facility] UTERUS 4 Y OF Y OF AFTER 1ST [facility] TRIMEST I PHY I PHY GESTATION 92565 [facility] BIOPHYSIC 4 Y OF Y OF AL [facility] PHY I PHY W/O NON-STRES S TESTING NONEMERG A0120 LICKING LICKING TRNSPRT: 4 [facility] ACT ACT AREA/OTH SYS NONEMERG A0120 LICKING LICKING TRNSPRT: 4 [facility] ACT ACT AREA/OT SYS DOPPLER 60077 L[facility] VELOUDIS VELOCIMET 4 [facility] UMBILICAL CARE ARTERY 79941 [facility] VELOUDIS BIOPHYSIC 4 [facility]IMARY [facility] W/O NON-STRES S TESTING US PREG 76089 [facility] VELOUDIS UTERUS 4 [facility] AFTER 1ST [facility] TRIMEST CARE GESTATION IADNA 02647 ASSOCIATE ELIAS NEISSERIA [address]OLOGI GONORRHOE ST[facility] AE AMPLIFIED PROBE TQ SMR PRIM 56454 [facility] VELOUDIS SRC WET 4 PRIMARY [facility] NFCT AGT CARE TISS JASON 34265 LYNDON VELOUDIS SLIDE 4 [facility] SKN/HR/NL CARE S FNGI/ECTO PARASIT IADNA 05004 ASSOCIATE GRIFFIN CHLAMYDIA [address] PATHOLOGI TRACHOMAT STS LLC IS AMPLIFIED PROBE TQ CYTP C/V 06041 ASSOCIATE ELIAS AUTO THIN [address] LYR PATHOLOGI PREPJ SCR STS LLC MNL RESCR PHYS PH BODY 25581 L[facility] VELOUDIS FLUID NOT 4 [facility] ELSEWHERE CARE SPECIFIED COLLECTIO [address] N VENOUS 4 D BLOOD PATHOLOGI VENIPUNCT STS LLC URE DOPPLER 47260 [facility] VELOCIMET 4 HOSP MED USH RY CTR UMBILICAL ARTERY DOPPLER 46612 [facility] ECHO 4 HOSP MED US CTR SPECTRAL DISPLAY COMPLETE DOPPLER 75390 PAUL LEE VELOCIMET 4 [facility] US RY CTR MIDDLE CEREBRAL ART [place] PREG 91303 PAUL LEE UTERUS 4 [facility] W/DETAIL CTR MARILYN 1ST GESTATION NONEMERG A0120 LICKING LICKING TRNSPRT: 4 [facility] MTN ACT ACT AREA/OTH SYS NONEMERG A0120 LICKING LICKING TRNSPRT: 4 [facility] MTN ACT ACT AREA/OTH SYS NONEMERG A0120 LICKING LICKING TRNSPRT: 4 [facility] ACT ACT AREA/OT SYS COLLECTIO 28108 ASSOCIATE KATHLEEN OROPEZA VENOUS 4 D BLOOD PATHOLOGI VENIPUNCT [facility] URE URINALYSI 32389 [facility] [facility] 4 [facility] IA SCR CARE XCPT CULTURE/[place] [address] AMERIPATH LULI SURG 3 [place] INC JAM PATHOLOGY GROSS&NAYAN ROSCOPIC EXAM US PREG 28741 LAMBERS LAMBERS UTERUS 3 DON DON REAL TIME W/IMAGE DCMTN TRANSVAG IADNA 50058 QUEST QUEST CHLAMYDIA 3 DIAGNOSTI DIAGNOSTI CS CS TRACHOMAT IS AMPLIFIED PROBE TQ CULTURE 09113 QUEST QUEST BACTERIAL 3 DIAGNOSTI DIAGNOSTI CS CS QUANTTATI VE COLONY COUNT URINE IADNA 48915 QUEST QUEST TRICHOMON 3 DIAGNOSTI DIAGNOSTI CS CS VAGINALIS DIRECT PROBE TQ IADNA 05461 QUEST QUEST NEISSERIA 3 DIAGNOSTI DIAGNOSTI CS CS GONORRHOE AE AMPLIFIED PROBE TQ URINE 59000 MARYCARMEN MARYCARMEN 3 KOBE KOBE TEST VISUAL COLOR CMPRSN METHS IADNA 57277 QUEST QUEST RAY 3 DIAGNOSTI DIAGNOSTI SPECIES CS CS DIRECT PROBE TQ URNLS DIP 65404 QUEST QUEST 3 DIAGNOSTI DIAGNOSTI STICK/TAB CS CS LET REAGENT AUTO MICROSCOP Y IADNA 62880 QUEST QUEST GARDNEREL 3 DIAGNOSTI DIAGNOSTI LA CS CS VAGINALIS DIRECT PROBE TQ DILATION& 6902 MEADOWMAGDI MEAWMAGDI CURETTAGE 3 W W REGIONAL REGIONAL FOLLOWING MEDICAL MEDICAL DELIVERY/ [place] MISSED 78518 MARYCARMEN CONROY 3 KOBE KOBE FIRST TRIMESTER SURGICAL ANESTHESI 76295 [place] A 3 [facility] E/[place] [address] AMERIPATH AMERIPATH SURG 3 [place] INC [place] INC PATHOLOGY GROSS&[place] [address] ESTEFANIA LEIF ESTEFANIA LEIF 3 UTERUS 14 WK TRANSABDL GESTAT IADNA 51784 QUEST QUEST CHLAMYDIA 3 DIAGNOSTI DIAGNOSTI CS CS TRACHOMAT IS AMPLIFIED PROBE TQ IADNA 42750 QUEST QUEST NEISSERIA 3 DIAGNOSTI DIAGNOSTI CS CS GONORRHOE AE AMPLIFIED PROBE TQ IADNA 82716 QUEST QUEST TRICHOMON 3 DIAGNOSTI DIAGNOSTI CS CS VAGINALIS DIRECT PROBE TQ IADNA 58144 QUEST QUEST RAY 3 DIAGNOSTI DIAGNOSTI SPECIES CS CS DIRECT PROBE TQ URNLS DIP 60902 ESTEFANIA LEIF ESTEFANIA LEIF 3 STICK/TAB LET RGNT NON-AUTO W/O MICRSCP IADNA 03482 QUEST QUEST GARDNEREL 3 DIAGNOSTI DIAGNOSTI LA CS CS VAGINALIS DIRECT PROBE TQ URNLS DIP 58246 ESTEFANIA LEIF ESTEFANIA LEIF 3 STICK/TAB LET RGNT [place] W/[place] [address] ESTEFANIA LEIF ESTEFANIA LEIF 3 UTERUS 14 WK TRANSABDL GESTAT URINE 68883 ESTEFANIA LEIF ESTEFANIA LEIF 3 TEST VISUAL COLOR CMPRSN METHS URINE 17897 SH[facility]ON HERRERA 0 [facility] TEST INC INC VISUAL COLOR CMPRSN METHS MRI BRAIN 79068 RAISA C VAN, BRAIN 0 VAN RAISA STEM W/O W/CONTRAS T MATERIAL RADEX ABD 62392 LY[facility] HAMCHER, COMPL 0 MEDICAL RAISA AQT ABD IMAGING W/S/E/D ASSOCIATE VIEWS 1 S VIEW BLOOD 90211 SHARON CHAMBERSON COUNT 0 [facility] COMPLETE INC INC AUTO&[place] [address] SHARON HERRERA LIPASE 0 [facility] INC INC COMPREHEN 83707 SHARON HERRERA SIVE 0 [facility] [place] [address] SHARON HERRERA AMYLASE 0 [place] [address] SHARON HERRERA AMYLASE 0 [facility] INC INC COMPREHEN 39079 SHARON HERRERA SIVE 0 [facility] METABOLIC INC INC PANEL ANTIBODY 49802 SHARON HERRERA HELICOBAC 0 [facility] TER INC INC PYLORI BLOOD 09400 SHARON HERRERA COUNT 0 [facility] COMPLETE INC INC AUTO&AUTO DIFRNTL WBC HEPATBL 81335 [facility] 0 MEDICAL RAISA IMG IMAGING GLBLDR ASSOCIATE S 94013 [facility] ARAUJO ABDOMINAL 0 MEDICAL RAISA REAL IMAGING TIME ASSOCIATE W/IMAGE S DOCUMENTA TION DESTRUCTI 56099 [place] MCKEMIE ON 9 ALICIA LOBATO, PREMALIGN INTERNAL SAW Singh ANT MED LESION 2-14 EA IAADI 82690 SH[facility]ON HERRERA INFLUENZA 9 [facility] B VIRUS INC INC IAADI 71293 SH[facility]ON HERRERA INFFLUENZ 9 [facility] A A VIRUS INC INC BLOOD 25355 SHARON HERRERA COUNT 9 [facility] COMPLETE INC INC AUTO&AUTO DIFRNTL WBC RADIOLOGI 41381 Fermin DALE EXAM 9 MEDICAL RAISA CHEST 2 IMAGING VIEWS ASSOCIATE FRONTAL&L S ATERAL PRESSURIZ 15283 [place] MCKEMIE ED/NONPRE 9 ALICIA LOBATO, SSURIZED INTERNAL SAW Singh INHALATIO MED N TREATMENT ANTIBODY 55594 COMBINED COMBINED CHLAMYDIA 9 PHYSICIAN PHYSICIAN S LAB S LAB CUL BACT 22196 COMBINED COMBINED XCPT 9 PHYSICIAN PHYSICIAN URINE S LAB S LAB BLOOD/STO OL AEROBIC ISOL SMR PRIM 81734 WOMEN'S ALEXANDER RIDDLE WET 9 [facility] OF NFCT AGT [place] [facility] RADEX 39785 [place] SONJA, ANKLE 9 RADIOLOGY SHELL G COMPLETE MINIMUM 3 VIEWS RADEX 32179 [place] SON[place], FOOT 9 RADIOLOGY SHLEL G COMPLETE MINIMUM 3 VIEWS SMR PRIM 63010 COMBINED COMBINED SRC WET 9 PHYSICIAN PHYSICIAN [facility] S LAB S LAB NFCT AGT ANTIBODY 95900 COMBINED COMBINED CHLAMYDIA 9 PHYSICIAN PHYSICIAN S LAB S LAB RADEX 68232 [place] JEREL, SPINE 1 9 MEDICAL МАРИЯ P VIEW IMAGING SPECIFY ASSOCIATE LEVEL S RADEX 29673 SHARON HERRERA SPINE 9 [facility] CERVICAL INC INC [address] [place] [address] SHARON HERRERA HEAD/BRAI 9 [facility] N W/O INC INC CONTRAST MATERIAL URINE 44420 SH[facility]ON HERRERA 9 [facility] TEST INC [place] [address] SHARON HERRERA CERVICAL 9 [facility] SPINE W/O INC INC CONTRAST MATERIAL 3D 71866 SHARON HERRERA RENDERING 9 [facility] W/INTERP INC INC & [place] 3D 32552 SHARON HERRERA RENDERING 9 [facility] INC INC W/INTERP& POSTPROC DIFF WORK STATION BLOOD 90829 SHARON HERRERA COUNT 9 [facility] COMPLETE INC INC AUTO&AUTO DIFRNTL WBC URNLS DIP 64259 SH[facility]ON HERRERA 9 [facility] STICK/TAB INC INC LET REAGENT AUTO MICROSCOP Y URINE 92821 SH[facility]ON HERRERA 9 [facility] TEST INC INC VISUAL COLOR CMPRSN METHS IADNA 44766 PATHOLOGY PATHOLOGY NEISSERIA 9 & & CYTOLOGY CYTOLOGY GONORRHOE LAB LAB AE AMPLIFIED PROBE TQ IADNA 81083 PATHOLOGY PATHOLOGY CHLAMYDIA 9 & & CYTOLOGY CYTOLOGY TRACHOMAT LAB LAB IS AMPLIFIED PROBE TQ CYTP C/V 09301 PATHOLOGY PATHOLOGY AUTO THIN 9 & & LYR CYTOLOGY CYTOLOGY PREPJ SCR LAB LAB MNL RESCR PHYS SPCL STN 02015 PATHOLOGY PATHOLOGY 2 I&R 9 & & EXCPT CYTOLOGY CYTOLOGY MICROORG/ LAB LAB ENZYME/[place] [address] PATHOLOGY PATHOLOGY SURG 9 & & PATHOLOGY CYTOLOGY CYTOLOGY LAB LAB GROSS&[place] [address] SHARON HERRERA HPYLORI 9 [facility] INC INC URINE 73901 SHARON HERRERA [address] [facility] TEST INC INC VISUAL COLOR CMPRSN METHS ANES 49938 [facility], UPPER GI 9 ANESTH SAW Samantha ENDOSCOPY OF THE [place] [address] SHARON HERRERA INFUSION 9 [facility] THERAPY INC INC PROPHYLAX IS/[place] [address] SHARON HERRERA INFUSION [address] [facility] THERAPY/P INC INC ROPHYLAXI S /DX 1ST TO 1 HR ESOPHAGOG 4516 SHARON HERRERA ASTRODUOD 9 [facility] ENOSCOPY INC INC WITH CLOSED BIOPSY EGD 89041 SHARON HERRERA TRANSORAL 9 [facility] BIOPSY INC INC SINGLE/MU LTIPLE DESTRUCTI 46929 [place] BESSON, ON 9 [place] JUANITO A PREMALIGN INTERNAL ANT MED LESION 2-14 EA GONADOTRO 29699 SHARON HERRERA PIN [address] [facility] CHORIONIC INC INC QUANTITAT VIOLETA GONADOTRO 31480 SHARON HERRERA PIN [address] [facility] CHORIONIC INC INC QUALITATI VE URNLS DIP 43518 [facility] 9 N N STICK/TAB [facility] REAGENT AUTO MICROSCOP Y URINE 85732 [facility] 9 N N TEST [facility] [place] [address] SHARON HERRERA STREPTOCO [address] [facility] CCUS INC INC GROUP A RADIOLOGI 76358 Fermin DALE EXAM 8 MEDICAL RIASA CHEST 2 IMAGING VIEWS ASSOCIATE FRONTAL&L S ATERAL HEPATBL 30363 L[facility] ARAUJO DUX SYS 8 MEDICAL RAISA [place] [address] SH[facility]ON HERRERA ABDOMINAL 8 [facility] REAL INC INC TIME W/IMAGE LIMITED EXC B9 06589 SCHULSTAD SCHULSTAD LESION 8 , EVA VELASQUEZ MRGN XCP SK TG T/A/L 1.1-2.0 CM URINE 74028 [facility]ON HERRERA 8 [facility] TEST INC INC VISUAL COLOR CMPRSN METHS BASIC 67467 SHARON HERRERA METABOLIC 8 [facility] PANEL INC INC CALCIUM TOTAL BLOOD 79842 SHARON HERRERA COUNT 8 [facility] COMPLETE INC INC AUTO&AUTO DIFRNTL WBC URNLS DIP 38952 SH[facility]ON SHARON 8 [facility] STICK/TAB INC INC LET REAGENT AUTO MICROSCOP Y US PELVIC 91798 LY[place] BELTRÁN, 8 MEDICAL МАРИЯ P NONOBSTET IMAGING JOEL IMAGE ASSOCIATE DCMTN S LIMITED/F /U URNLS DIP 43025 SH[facility]ON HERRERA 8 [facility] STICK/TAB INC INC LET REAGENT AUTO MICROSCOP Y URNLS DIP 17102 [facility]ON SHARON 8 [facility] STICK/TAB INC INC LET REAGENT AUTO MICROSCOP Y BLOOD 38311 SHARON SHARON COUNT 8 [facility] COMPLETE INC INC AUTO&AUTO DIFRNTL WBC URINE 34382 SHARON HERRERA 8 [facility] TEST INC INC [place] [address] SHARON HERRERA LIPASE 8 [facility] INC INC COMPREHEN 38461 SHARON HERRERA SIVE 8 [facility] [place] [address] SHARON HERRERA AMYLASE 8 [facility] INC INC RADEX 26812 L[place] VAN, SPINE 8 MEDICAL RAISA LUMBOSACR IMAGING AL ASSOCIATE MINIMUM 4 S VIEWS URINE 85300 SH[facility]ON HERRERA 8 [facility] TEST INC INC VISUAL COLOR CMPRSN METHS URNLS DIP 44059 SH[facility]ON SHARON 8 [facility] STICK/TAB INC INC LET REAGENT AUTO MICROSCOP Y RADEX 71742 [place] VAN, ANKLE 8 MEDICAL RAISA COMPLETE IMAGING MINIMUM 3 ASSOCIATE VIEWS S RADIOLOGI 58750 LYNDON ARAUJO, C 8 MEDICAL RAISA EXAMINATI IMAGING ON FEMUR ASSOCIATE 2 VIEWS S RADIOLOGI 76623 LYNDON ARAUJO, C 8 MEDICAL RAISA EXAMINATI IMAGING ON PELVIS ASSOCIATE 1/2 S VIEWS RADIOLOGI 72849 [place] ARAUJO, C 8 MEDICAL RAISA EXAMINATI IMAGING ON TIBIA ASSOCIATE & FIBULA S 2 VIEWS URINE 15912 [facility]ON HERRERA 8 [facility] TEST INC INC VISUAL COLOR CMPRSN METHS RADEX 08485 SHARON HERRERA SPINE 8 [facility] LUMBOSACR INC INC AL MINIMUM 4 VIEWS RADEX 14198 SH[facility]ON HERRERA FOOT 8 [facility] COMPLETE INC INC MINIMUM 3 VIEWS RADEX 62621 SH[facility]ON HERRERA ANKLE 8 [facility] COMPLETE INC INC MINIMUM 3 VIEWS RADEX 78246 [facility] HERRERA HAND 8 [facility] MINIMUM 3 INC INC VIEWS DESTRUCTI 53662 [place] MCKEMIE ON 8 [place] JR, PREMALIGN INTERNAL SAW F ANT MED LESION 2-14 EA Encounters Encounter Start End Date Code Location Performer Type Date OFFICE 93298 [facility] 7 [facility]UTES [facility] T OFFICE 44996 NE HAJI OUTPATIEN 7 7 [facility] T VISIT SOLUTIONS 15 IN MINUTES [facility] - [facility] OUTPATI[facility] INC T OFFICE 16506 NE HAJI OUTPATIEN 7 7 HEALTH T NEW 30 SOLUTIONS MINUTES IN OFFICE 21616 MARK HAJI OUTPATIEN 6 6 [facility] 30 URGENT MINUTES TREAT OFFICE 18597 [facility] EL OUTPATIEN 6 6 PHYSICIAN NAYAN T VISIT S GROUP 15 MINUTES OFFICE 96503 LYNDON VELOUDIS OUTPATIEN 5 5 PRIMARY JR YVAN T VISIT HEALTH 15 CARE MINUTES OFFICE 88465 LYNDON VELOUDIS OUTPATIEN 5 5 PRIMARY JR YVAN T VISIT HEALTH 25 CARE MINUTES EMERGENCY [address] [place] [address] [facility] HOSPITAL T VISIT HIGH/URGE NT SEVERITY EMERGENCY 77351 [facility] [place] DEPT 4 4 EMMETT VISIT EMERGENCY HIGH PHYS SEVERITY& THREAT [facility] H[facility]PITAL GUNTER - 4 4 [facility] T OFFICE 05133 [facility] [address] [facility] UNIVERSIT - [address] [facility] UNIVERSIT - 4 4 Y [facility]PATIENT [facility] 4 4 PRIMARY JR YVAN T VISIT HEALTH 15 CARE MINUTES OFFICE 53715 [facility] [place] [facility] 4 4 PRIMARY JR YVAN T NEW 60 HEALTH MINUTES CARE EMERGENCY 51208 [facility] [address] [facility] EMERGENCY EMERGENCY T VISIT PHYSI PHYSI HIGH/URGE NT SEVERITY EMERGENCY 58213 [facility] DEPT 3 3 CHR CHR VISIT HIGH SEVERITY& THREAT [facility] HOSPITAL MELINDA - 3 3 W INPATIENT [facility] MEDICAL OFFICE 39120 ESTEFANIA LEIF OUTPATIEN 3 3 T VISIT 15 MINUTES OFFICE 34126 ESTEFANIA LEIF OUTPATIEN 3 3 T VISIT 15 MINUTES OFFICE 90741 ESTEFANIA LEIF OUTPATIEN 3 3 T VISIT 25 MINUTES OFFICE 13736 [facility] ADITHYA OUTPATIEN 0 0 [facility] NAN T VISIT INTERNAL 15 MEDI MINUTES OFFICE 36272 [facility] SHARONMIE OUTPATIEN 0 0 VALLEY JR, T VISIT INTERNAL SAW 15 MED MINUTES OFFICE 57112 [facility] ADITHYA OUTPATIEN 0 0 ALICIA MENA T VISIT INTERNAL 15 MEDI MINUTES [facility]OSPITAL [facility] - 0 0 [facility] T [facility]PITAL SHARON [facility] [address] [facility] OUTPATIEN INC T OFFICE 15356 MYNOR MYNOR OUTPATIEN 0 0 SEEMA STEPHENSON T VISIT 15 MINUTES OFFICE 39502 [facility] MYNOR OUTPATIEN 0 0 ALICIA STEPHENSON T VISIT INTERNAL 15 MEDI MINUTES OFFICE 79293 [facility] B[facility]ON, OUTPATIEN 0 0 ALICIA Kerr T VISIT INTERNAL 15 MED MINUTES [facility] [address] [facility] OUTPATIEN INC T OFFICE 61192 [facility], OUTPATIEN 0 0 ALICIA Kerr T VISIT INTERNAL 15 MED MINUTES [facility]OSPITAL SH[facility]ON [facility] [address] [facility] OUTPATIEN [facility] T OFFICE 06726 [place] MCKEMIE OUTPATIEN 0 0 Zachary VARGAS JR VISIT INTERNAL SAW F 15 MED MINUTES OFFICE 82277 [facility], OUTPATIEN 9 9 ALICIA Kerr T VISIT INTERNAL 15 MED MINUTES OFFICE 66473 [facility] MCKEMIE OUTPATIEN 9 9 ALICIA Zachary VISIT INTERNAL SAW F 15 MED MINUTES OFFICE 45474 [facility], OUTPATIEN 9 9 ALICIA Kerr T VISIT INTERNAL 15 MED MINUTES OFFICE 78389 [facility] MCKEMIE OUTPATIEN 9 9 ALICIA T VISIT INTERNAL SAW F 10 MED MINUTES [facility] - 9 9 [facility] OUTPATIEN INC T OFFICE 40418 [place] MCKEMIE OUTPATIEN 9 9 Zachary VARGAS JR VISIT INTERNAL SAW F 15 MED MINUTES OFFICE 54099 [facility], OUTPATIEN 9 9 ALICIA SOLOMON A T VISIT INTERNAL 15 MED MINUTES OFFICE 13279 [facility], OUT[facility] 9 9 [facility] T VISIT [facility]IN[facility] 15 [facility]ES [facility] 79515 KSENIA KUSH, T 9 9 [facility] INC MODERATE SEVERITY OFFICE 68626 [facility], OUTPATIEN 9 9 ALICIA SOLOMON A T VISIT INTERNAL 15 MED MINUTES OFFICE 38060 [facility], OUTPATIEN 9 9 [facility] J T VISIT CLINIC OF 15 MINUTES [facility] EMERGENCY [address] [facility] DEPARTMEN INC T VISIT MODERATE SEVERITY [facility] - 9 9 [facility] T EMERGENCY 38343 ZACHARY GALLEGOS, 9 9 EMERGENCY [facility] SERVICES T VISIT HIGH/URGE ASSOCIATE NT S SEVERITY [facility]OSP[facility] - 9 9 [facility] T EMERGENCY [address] [facility] DEPARTMEN INC T VISIT LOW/MODER SEVERITY OFFICE 64618 [facility] B[facility], OUTPATIEN 9 9 ALICIA SOLOMON A T VISIT INTERNAL 15 MED MINUTES INITIAL 09944 [facility], PREVENTIV 9 9 [facility] EMMY AGE 12-17 [facility] YR OFFICE 89788 [facility], OUTPATIEN 9 9 ALICIA SOLOMON A T VISIT INTERNAL 15 MED MINUTES OFFICE 11098 [facility] MCKEMIE OUTPATIEN 9 9 [place] , T VISIT INTERNAL SAW F 10 MED MINUTES [facility] - [facility] 9 [facility] T OFFICE 24706 [facility] OUTPATIEN 9 9 ALICIA LOBATO T VISIT INTERNAL SAW F 15 MED MINUTES [facility] - 9 9 [facility] INC T EMERGENCY 81178 [facility], 9 9 [facility] EMERGENCY T VISIT [facility] INC MODERATE SEVERITY EMERGENCY 51827 [facility] 9 9 N [facility] T VISIT HOSPITAL LOW/MODER SEVERITY HOSPITAL [facility] - 9 9 N OUTPATIEN [facility] T HOSPITAL OFFICE 63796 [place] MCKEM[facility] OUTPATIEN 9 9 ALICIA T VISIT INTERNAL SAW F 15 MED MINUTES [facility]OSP[facility] - [address] [facility] OUTPATIEN INC T OFFICE 03875 TRUDYSTSANGEETHA YATESSTSANGEETHA OUTPATIEN 9 9 , EVA VELASQUEZ T VISIT 15 MINUTES [facility]OSPITAL [facility] - [address] [facility] OUTPATIEN INC T OFFICE 51814 [facility] M[facility] OUTPATIEN 8 8 Zachary VARGAS JR VISIT INTERNAL SAW F 15 MED MINUTES [facility]OSP[facility] - [address] [facility] OUTPATIEN INC T OFFICE 47418 [facility] [facility] OUTPATIEN 8 8 Zachary VARGAS JR VISIT INTERNAL SAW F 15 MED MINUTES [facility] - [address] [facility] OUTPATIEN [facility] T EMERGENCY 96260 SHARON 8 8 [facility] T VISIT LOW/MODER SEVERITY [facility]OSPITAL [facility] - [address] [facility] OUTPATIEN [facility] T EMERGENCY [address] [facility] T VISIT MODERATE SEVERITY OFFICE 20858 [facility] 8 8 , EVA VELASQUEZ ION NEW/ESTAB PATIENT 60 MIN OFFICE 47526 [facility] M[facility] OUTPATIEN 8 8 [facility] JR, T VISIT INTERNAL SAW F 15 MED MINUTES OFFICE 36873 [place] [facility] OUTPATIEN 8 8 Zachary VARGAS JR VISIT INTERNAL SAW F 15 MED MINUTES OFFICE 43043 [place] TRUMAN, OUTPATIEN 8 8 ALICIA CARNES T VISIT INTERNAL 10 MED MINUTES OFFICE 22087 [facility] OUTPATIEN 8 8 Zachary VARGAS JR VISIT INTERNAL SAW F 15 MED MINUTES [facility] - 8 8 [facility] OUT[facility] INC T EMERGENCY 15431 ZAY GARCIA, 8 8 [employer] E DEPARTMEN CORPORATI T VISIT ON HIGH/URGE NT SEVERITY EMERGENCY [address] [facility] [facility] DEPARTMEN INC T VISIT MODERATE SEVERITY [facility]OSPITAL [facility] - [address] [facility] OUTPATIEN INC T OFFICE 61040 [place] MCK[facility] OUTPATIEN 8 8 Zachary VARGAS JR VISIT INTERNAL SAW F 15 MED MINUTES [facility] - [address] [facility] OUTPATIEN INC T EMERGENCY [address] [facility] DEPARTMEN INC T VISIT MODERATE SEVERITY EMERGENCY 38787 ZAY GARCIA, 8 8 [employer] E DEPARTMEN CORPORATI T VISIT ON HIGH/URGE NT SEVERITY OFFICE 62256 [facility] MCKEM[facility] OUTPATIEN 8 8 Zachary VARGAS JR VISIT INTERNAL SAW F 15 MED MINUTES OFFICE 82300 [place] MCKEM[facility] OUTPATIEN 8 8 Zachary VARGAS JR VISIT INTERNAL SAW F 15 MED MINUTES OFFICE 63675 [place] MCKEMIE OUTPATIEN 8 8 Zachary VARGAS JR VISIT INTERNAL SAW F 15 MED MINUTES EMERGENCY 27027 [facility] 8 8 [facility] DEPARTMEN INC T VISIT MODERATE SEVERITY [facility] - 8 8 [facility] OUTPATIEN INC T OFFICE 32777 [facility] MCK[facility] OUTPATIEN 8 8 ALICIA LOBATO, T VISIT INTERNAL SAW F 15 MED MINUTES [facility] - 8 8 [facility] INC T OFFICE 03642 [place] MCK[facility] OUTPATIEN 8 8 ALICIA JR, T VISIT INTERNAL SAW F 15 MED MINUTES [facility] - 8 8 [facility] INC T OFFICE 13014 [place] MCKEM[facility] OUTPATIEN 8 8 ALICIA JR, T VISIT INTERNAL SAW F 15 MED MINUTES [facility]PITAL [facility] - [address] [facility] OUTPATIEN INC T OFFICE 66960 [facility] MCKEMIE OUTPATIEN 8 8 ALICIA LOBATO, T VISIT INTERNAL SAW F 15 MED MINUTES OFFICE 82027 [place] MCKEMIE OUTPATIEN 8 8 ALICIA JR, T VISIT INTERNAL SAW F 15 MED MINUTES OFFICE 50397 [place] MCKEMIE OUTPATIEN 8 8 ALICIA JR, T VISIT INTERNAL SAW F 15 MED MINUTES OFFICE 96469 [place] MCK[facility] OUTPATIEN 8 8 ALICIA JR, T VISIT INTERNAL SAW F 15 MED MINUTES
--- OUTSIDE RECORDS SUMMARY | 2016-08-31 21:43 | External Medical Summary Rpt ---
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 [facility] VELOCIMET 4 HOSP MED USH RY CTR UMBILICAL ARTERY DOPPLER 30031 [facility] ECHO 4 HOSP MED US CTR SPECTRAL DISPLAY COMPLETE DOPPLER 10346 PAUL LEE VELOCIMET 4 [facility] US RY CTR [place] P[place] 51828 PAUL LEE UTERUS 4 [facility] W/DETAIL CTR MARILYN 1ST GESTATION NONEMERG A0120 [place] LICK[place] TRNSPRT: 4 [facility] MTN ACT ACT AREA/OTH SYS NONEMERG A0120 [place] LICK[place] TRNSPRT: 4 [facility] MTN ACT ACT AREA/OTH SYS NONEMERG A0120 [place] LICK[place] TRNSPRT: 4 [facility] ACT ACT AREA/OT SYS COLLECTIO 17863 ASSOCIATE KATHLEEN OROPEZA VENOUS 4 D BLOOD PATHOLOGI VENIPUNCT [facility] URE URINALYSI 80930 [place] [facility] S 4 [facility]IMARY [facility] IA SCR CARE XCPT CULTURE/[place] [address] AMERIPATH LULI SURG 3 [place] INC JAM PATHOLOGY GROSS&NAYAN ROSCOPIC EXAM US PREG 06880 [facility] UTERUS 3 DON DON REAL TIME W/IMAGE DCMTN TRANSVAG IADNA 92284 [facility] QUEST CHLAMYDIA 3 DIAGNOSTI DIAGNOSTI CS CS TRACHOMAT IS AMPLIFIED PROBE TQ CULTURE 40281 QUEST QUEST BACTERIAL 3 DIAGNOSTI DIAGNOSTI CS CS QUANTTATI VE COLONY COUNT URINE IADNA 54142 QUEST QUEST TRICHOMON 3 DIAGNOSTI DIAGNOSTI CS CS VAGINALIS DIRECT PROBE TQ IADNA 76159 QUEST QUEST NEISSERIA 3 DIAGNOSTI DIAGNOSTI CS CS GONORRHOE AE AMPLIFIED PROBE TQ URINE 56343 MARYCARMEN MARYCARMEN 3 KOBE KOBE TEST VISUAL COLOR CMPRSN METHS IADNA 28022 [facility] QUEST RAY 3 DIAGNOSTI DIAGNOSTI SPECIES CS CS DIRECT PROBE TQ URNLS DIP 85164 QUEST QUEST 3 DIAGNOSTI DIAGNOSTI STICK/TAB CS CS LET REAGENT AUTO MICROSCOP Y IADNA 37744 QUEST QUEST GARDNEREL 3 DIAGNOSTI DIAGNOSTI LA CS CS VAGINALIS DIRECT PROBE TQ DILATION& 6902 MEADOWMAGDI MEAWMAGDI CURETTAGE 3 W W REGIONAL REGIONAL FOLLOWING MEDICAL MEDICAL DELIVERY/ [place] MISSED 64485 MARYCARMEN CONROY 3 KOBE KOBE FIRST TRIMESTER SURGICAL ANESTHESI 68017 [place] A 3 [facility] E/[place] [address] AMERIPATH AMERIPATH SURG 3 [place] INC PATHOLOGY GROSS&[place] [address] ESTEFANIA LEIF ESTEFANIA LEIF 3 UTERUS 14 WK TRANSABDL GESTAT IADNA 07788 QUEST QUEST CHLAMYDIA 3 DIAGNOSTI DIAGNOSTI CS CS TRACHOMAT IS AMPLIFIED PROBE TQ IADNA 81068 QUEST QUEST NEISSERIA 3 DIAGNOSTI DIAGNOSTI CS CS GONORRHOE AE AMPLIFIED PROBE TQ IADNA 86948 QUEST QUEST TRICHOMON 3 DIAGNOSTI DIAGNOSTI CS CS VAGINALIS DIRECT PROBE TQ IADNA 84265 QUEST QUEST RAY 3 DIAGNOSTI DIAGNOSTI SPECIES CS CS DIRECT PROBE TQ URNLS DIP 62399 ESTEFANIA LEIF ESTEFANIA LEIF 3 STICK/TAB LET RGNT NON-AUTO W/O MICRSCP IADNA 96841 QUEST QUEST GARDNEREL 3 DIAGNOSTI DIAGNOSTI LA CS CS VAGINALIS DIRECT PROBE TQ URNLS DIP 59045 ESTEFANIA LEIF ESTEFANIA LEIF 3 STICK/TAB LET [place] [address] ESTEFANIA LEIF ESTEFANIA LEIF 3 UTERUS 14 WK TRANSABDL GESTAT URINE 56013 ESTEFANIA LEIF ESTEFANIA LEIF 3 TEST VISUAL COLOR CMPRSN METHS URINE 51293 [facility]ON HERRERA 0 [facility] TEST INC INC VISUAL COLOR CMPRSN METHS MRI BRAIN 22005 RAISA C VAN, BRAIN 0 VAN RAISA STEM W/O W/CONTRAS T MATERIAL RADEX ABD 29641 [facility] HAMCHER, COMPL 0 MEDICAL RAISA AQT ABD IMAGING W/S/E/D ASSOCIATE VIEWS 1 S VIEW BLOOD 44740 [facility] CHAMBERSON COUNT 0 [facility] COMPLETE INC INC AUTO&[place] [address] SH[facility]ON HERRERA LIPASE 0 [facility] INC INC COMPREHEN 46074 SHARON HERRERA SIVE 0 [facility] [address] SHARON HERRERA AMYLASE 0 [place] [address] SHARON HERRERA AMYLASE 0 [facility] INC INC COMPREHEN 47362 SHARON HERRERA SIVE 0 [facility] METABOLIC INC INC PANEL ANTIBODY 83711 SH[facility]ON HERRERA HELICOBAC 0 [facility] TER INC INC PYLORI BLOOD 51357 SH[facility]ON HERRERA COUNT 0 [facility] COMPLETE INC INC AUTO&AUTO DIFRNTL WBC HEPATBL 09289 [facility] MANCINIX SYS 0 MEDICAL RAISA IMG IMAGING GLBLDR ASSOCIATE S 41991 [facility] ARAUJO ABDOMINAL 0 MEDICAL RAISA REAL IMAGING TIME ASSOCIATE W/IMAGE S DOCUMENTA TION DESTRUCTI 50387 [place] MCKEMIE ON 9 ALICIA LOBATO, PREMALIGN INTERNAL SAW Singh ANT MED LESION 2-14 EA IAADI 27316 [facility]ON HERRERA INFLUENZA 9 [facility] B VIRUS INC INC IAADI 17448 [facility]ON HERRERA INFFLUENZ 9 [facility] A A VIRUS INC INC BLOOD 54717 SH[facility]ON HERRERA COUNT 9 [facility] COMPLETE INC INC AUTO&AUTO DIFRNTL WBC RADIOLOGI 25946 Fermin DALE EXAM 9 MEDICAL RAISA CHEST 2 IMAGING VIEWS ASSOCIATE FRONTAL&L S ATERAL PRESSURIZ 95674 [place] M[place] ED/NONPRE 9 ALICIA LOBATO, SSURIZED INTERNAL SAW Singh INHALATIO MED N TREATMENT ANTIBODY 74512 COMBINED COMBINED CHLAMYDIA 9 PHYSICIAN PHYSICIAN S LAB S LAB CUL BACT 28327 COMBINED COMBINED XCPT 9 PHYSICIAN PHYSICIAN URINE S LAB S LAB BLOOD/STO OL AEROBIC ISOL SMR PRIM 90494 WOMEN'S ALEXANDER RIDDLE WET 9 [facility] AGT [place] [facility] RADEX 86775 [facility] [place] SONJA, ANKLE 9 RADIOLOGY SHELL G COMPLETE MINIMUM 3 VIEWS RADEX 86313 [place] [place] SON[place], FOOT 9 RADIOLOGY SHELL G COMPLETE MINIMUM 3 VIEWS SMR PRIM 20423 COMBINED COMBINED SRC WET [address] [facility] S LAB S LAB NFCT AGT ANTIBODY 24721 COMBINED COMBINED CHLAMYDIA 9 PHYSICIAN PHYSICIAN S LAB S LAB RADEX 92706 [place] JEREL, SPINE 1 9 MEDICAL МАРИЯ P VIEW IMAGING SPECIFY ASSOCIATE LEVEL S RADEX 99746 SHARON HERRERA SPINE 9 [facility] CERVICAL INC INC 2 [address] [place] [address] SHARON HERRERA HEAD/BRAI 9 [facility] N W/O INC INC CONTRAST MATERIAL URINE 97590 [facility]ON HERRERA 9 [facility] TEST INC [place] [address] SH[facility]ON HERRERA CERVICAL 9 [facility] SPINE W/O INC INC CONTRAST MATERIAL 3D 46409 SH[facility]ON HERRERA RENDERING 9 [facility] W/INTERP INC INC & POSTPROCE SS SUPERVISI ON 3D 00220 SH[facility]ON HERRERA RENDERING 9 [facility] INC INC W/INTERP& POSTPROC DIFF WORK STATION BLOOD 46453 SH[facility]ON HERRERA COUNT 9 [facility] COMPLETE INC INC AUTO&AUTO DIFRNTL WBC URNLS DIP 34733 [facility] HERRERA 9 [facility] STICK/TAB INC INC LET REAGENT AUTO MICROSCOP Y URINE 13192 SH[facility]ON HERRERA 9 [facility] TEST INC INC VISUAL COLOR CMPRSN METHS IADNA 68943 PATHOLOGY PATHOLOGY NEISSERIA 9 & & CYTOLOGY CYTOLOGY GONORRHOE LAB LAB AE AMPLIFIED PROBE TQ IADNA 89673 PATHOLOGY PATHOLOGY CHLAMYDIA 9 & & CYTOLOGY CYTOLOGY TRACHOMAT LAB LAB IS AMPLIFIED PROBE TQ CYTP C/V 05608 PATHOLOGY PATHOLOGY AUTO THIN 9 & & LYR CYTOLOGY CYTOLOGY PREPJ SCR LAB LAB MNL RESCR PHYS SPCL STN 93314 PATHOLOGY PATHOLOGY 2 I&R 9 & & EXCPT CYTOLOGY CYTOLOGY MICROORG/ LAB LAB ENZYME/[place] [address] PATHOLOGY PATHOLOGY SURG 9 & & PATHOLOGY CYTOLOGY CYTOLOGY LAB LAB GROSS&[place] [address] SHARON HERRERA HPYLORI 9 [facility] INC INC URINE 90846 SH[facility]ON HERRERA 9 [facility] TEST INC INC VISUAL COLOR CMPRSN METHS ANES 74010 [facility], UPPER GI 9 ANESTH SAW Samantha ENDOSCOPY OF [place] [address] SH[facility]ON HERRERA INFUSION 9 [facility] THERAPY INC [place] [address] SHARON HERRERA INFUSION 9 [facility] THERAPY/P INC INC ROPHYLAXI S /DX 1ST TO 1 HR ESOPHAGOG 4516 SHARON HERRERA ASTRODUOD 9 [facility] HOS[facility] ENOSCOPY INC INC WITH CLOSED BIOPSY EGD 60893 SHARON HERRERA TRANSORAL 9 [facility] HOSP BIOPSY INC INC SINGLE/MU LTIPLE DESTRUCTI 39808 [place] BESSON, ON 9 NEW LOTHROP JUANITO A PREMALIGN INTERNAL ANT MED LESION 2-14 EA GONADOTRO 75524 SHARON HERRERA PIN 9 [facility] CHORIONIC INC INC QUANTITAT VIOLETA GONADOTRO 56664 SHARON HERRERA PIN 9 [facility] CHORIONIC INC INC QUALITATI VE URNLS DIP 72604 [facility] 9 N N STICK/TAB [facility] REAGENT AUTO MICROSCOP Y URINE 27407 [facility] 9 N N TEST [facility] [place] [address] SHARON HERRERA STREPTOCO 9 [facility] CCUS INC INC GROUP A RADIOLOGI 81020 Fermin DALE EXAM 8 MEDICAL RAISA CHEST 2 IMAGING VIEWS ASSOCIATE FRONTAL&L S ATERAL HEPATBL 93306 [facility] ARAUJO DUX SYS 8 MEDICAL RA[place] [address] SH[facility] HERRERA ABDOMINAL 8 [facility] REAL INC INC TIME W/IMAGE LIMITED EXC B9 84583 [facility] SCHULSTAD LESION 8 , EVA VELASQUEZ MRGN XCP SK TG T/A/L 1.1-2.0 CM URINE 73980 [facility] HERRERA 8 [facility] TEST INC INC VISUAL COLOR CMPRSN METHS BASIC 68469 SHARON HERRERA METABOLIC 8 [facility] PANEL INC INC CALCIUM TOTAL BLOOD 48634 SH[facility]ON HERRERA COUNT 8 [facility] COMPLETE INC INC AUTO&AUTO DIFRNTL WBC URNLS DIP 28055 [facility]ON SHARON 8 [facility] STICK/TAB INC INC LET REAGENT AUTO MICROSCOP Y US PELVIC 03724 L[facility] BELTRÁN, 8 MEDICAL МАРИЯ P NONOBSTET IMAGING JOEL IMAGE ASSOCIATE DCMTN S LIMITED/F /U URNLS DIP 20862 [facility] HERRERA 8 [facility] STICK/TAB INC INC LET REAGENT AUTO MICROSCOP Y URNLS DIP 30476 [facility] SHARON 8 [facility] STICK/TAB INC INC LET REAGENT AUTO MICROSCOP Y BLOOD 99187 [facility]ON SHARON COUNT 8 [facility] COMPLETE INC INC AUTO&AUTO DIFRNTL WBC URINE 27419 [facility] HERRERA 8 [facility] TEST INC INC [place] [address] SHARON HERRERA LIPASE 8 [facility] INC INC COMPREHEN 51718 SHARON HERRERA SIVE 8 [facility] [place] [address] SHARON HERRERA AMYLASE 8 [facility] INC INC RADEX 23451 [facility] VAN, SPINE 8 MEDICAL RAISA LUMBOSACR IMAGING AL ASSOCIATE MINIMUM 4 S VIEWS URINE 08009 [facility] HERRERA 8 [facility] TEST INC INC VISUAL COLOR CMPRSN METHS URNLS DIP 46622 [facility]ON SHARON 8 [facility] STICK/TAB INC INC LET REAGENT AUTO MICROSCOP Y RADEX 73539 [place] VAN, ANKLE 8 MEDICAL RAISA COMPLETE IMAGING MINIMUM 3 ASSOCIATE VIEWS S RADIOLOGI 98388 LY[facility]ON ARAUJO, C 8 MEDICAL RAISA EXAMINATI IMAGING ON FEMUR ASSOCIATE 2 VIEWS S RADIOLOGI 84809 [facility] ARAUJO, C 8 MEDICAL RAISA EXAMINATI IMAGING ON PELVIS ASSOCIATE 1/2 S VIEWS RADIOLOGI 43134 [facility] ARAUJO, C 8 MEDICAL RAISA EXAMINATI IMAGING ON TIBIA ASSOCIATE & FIBULA S 2 VIEWS URINE 17665 [facility] HERRERA 8 [facility] TEST INC INC VISUAL COLOR CMPRSN METHS RADEX 29601 SHARON HERRERA SPINE 8 [facility] LUMBOSACR INC INC AL MINIMUM 4 VIEWS RADEX 66268 SH[facility]ON HERRERA FOOT 8 [facility] COMPLETE INC INC MINIMUM 3 VIEWS RADEX 88505 SH[facility]ON HERRERA ANKLE 8 [facility] COMPLETE INC INC MINIMUM 3 VIEWS RADEX 34680 [facility] HERRERA HAND 8 [facility] MINIMUM 3 INC INC VIEWS DESTRUCTI 09880 [place] MCKEM[place] ON 8 NEW LOTHROP JR, PREMALIGN INTERNAL SAW F ANT MED LESION 2-14 EA Encounters Encounter Start End Date Code Location Performer Type Date OFFICE 52934 [facility] 7 7 [facility] T V[facility] INC 10 MINUTES [facility] - 7 7 [facility] OUTPATIEN INC T OFFICE 79987 [facility] OUTPATIEN 7 7 HEALTH T VISIT SOLUTIONS 15 IN MINUTES HOSPITAL [facility] - 7 7 [facility] OUTPATIEN INC T OFFICE 24639 NE HAJI OUTPATIEN 7 7 HEALTH T NEW 30 SOLUTIONS MINUTES IN OFFICE 30010 MARK HAJI OUTPATIEN 6 6 [facility] T NEW 30 URGENT MINUTES TREAT OFFICE 69079 [facility] EL OUTPATIEN 6 6 PHYSICIAN NAYAN T VISIT S GROUP 15 MINUTES OFFICE 77780 [facility] VELOUDIS OUTPATIEN 5 5 PRIMARY JR YVAN T VISIT HEALTH 15 CARE MINUTES OFFICE 21933 [facility] OUTPATIEN 5 5 PRIMARY JR YVAN T VISIT HEALTH 25 CARE MINUTES EMERGENCY 16455 [place] 4 4 CO [facility] T VISIT HIGH/URGE NT SEVERITY EMERGENCY 09549 [facility] 4 4 EMMETT VISIT EMERGENCY HIGH PHYS SEVERITY& THREAT [facility] HOSPITAL GUNTER - 4 4 CO [facility] T OFFICE 77235 [facility]ERS[facility] - 4 4 Y [facility] UNIVERSIT - 4 4 Y INPATIENT HOSPITAL OFFICE 20632 [facility] V[facility] OUTPATIEN 4 4 PRIMARY JR YVAN T VISIT HEALTH 15 CARE MINUTES OFFICE 00201 [facility] V[facility] OUTPATIEN 4 4 PRIMARY JR YVAN T NEW 60 HEALTH MINUTES CARE EMERGENCY 80336 [facility] 4 4 EMMETT EMMETT [facility] EMERGENCY EMERGENCY T VISIT PHYSI PHYSI HIGH/URGE NT SEVERITY EMERGENCY 34410 SARAH SMITH DEPT 3 3 CHR CHR VISIT HIGH SEVERITY& THREAT [facility] HOSPITAL MELINDA - [address] [facility] MEDICAL OFFICE 24639 ESTEFANIA LEIF OUTPATIEN 3 3 T VISIT 15 MINUTES OFFICE 16962 ESTEFANIA LEIF OUTPATIEN 3 3 T VISIT 15 MINUTES OFFICE 18646 ESTEFANIA LEIF OUTPATIEN 3 3 T VISIT 25 MINUTES OFFICE 92419 [place] ADITHYA OUTPATIEN 0 0 [facility] NAN T VISIT INTERNAL 15 MEDI MINUTES OFFICE 38320 [place] SHARONMIE OUTPATIEN 0 0 VALLEY JR, T VISIT INTERNAL SAW 15 MED MINUTES OFFICE 49674 [place] ADITHYA OUTPATIEN 0 0 ALICIA MENA T VISIT INTERNAL 15 MEDI MINUTES HOSPITAL [facility] - 0 0 [facility] OUTPATIEN INC T HOSPITAL SH[facility]ON - 0 0 [facility] OUTPATIEN INC T OFFICE 50654 MYNOR MYNOR OUTPATIEN 0 0 SEEMA STEPHENSON T VISIT 15 MINUTES OFFICE 28834 [place] MYNOR OUTPATIEN 0 0 ALICIA STEPHENSON T VISIT INTERNAL 15 MEDI MINUTES OFFICE 58866 [place] BESSON, OUTPATIEN 0 0 ALICIA Kerr T VISIT INTERNAL 15 MED MINUTES HOSPITAL [facility]ON - 0 0 [facility] OUTPATIEN INC T OFFICE 45245 [place] B[place], OUTPATIEN 0 0 ALICIA Kerr T VISIT INTERNAL 15 MED MINUTES HOSPITAL SH[facility]ON - 0 0 [facility] OUTPATIEN [facility] T OFFICE 06898 [place] MCKEMIE OUTPATIEN 0 0 Zachary VARGAS JR VISIT INTERNAL SAW F 15 MED MINUTES OFFICE 59802 [place] B[place], OUTPATIEN 9 9 ALICIA Kerr T VISIT INTERNAL 15 MED MINUTES OFFICE 54334 [place] MCKEMIE OUTPATIEN 9 9 ALICIA Zachary VISIT INTERNAL SAW F 15 MED MINUTES OFFICE 14405 [place], OUTPATIEN 9 9 ALICIA Kerr T VISIT INTERNAL 15 MED MINUTES OFFICE 50764 [place] MCKEMIE OUTPATIEN 9 9 ALICIA T VISIT INTERNAL SAW F 10 MED MINUTES HOSPITAL [facility]ON - 9 9 [facility] OUTPATIEN INC T OFFICE 54814 [place] MCKEMIE OUTPATIEN 9 9 Zachary VARGAS JR VISIT INTERNAL SAW F 15 MED MINUTES OFFICE 70253 [place] B[place], OUTPATIEN 9 9 ALICIA SOLOMON A T VISIT INTERNAL 15 MED MINUTES OFFICE 02771 [facility], OUTPATIEN 9 9 [facility] [place] J T VISIT [facility]INIC [facility] 15 MINUTES [facility] 79138 KSENIA KUSH, T 9 9 [facility]IS[facility] MODERATE SEVERITY OFFICE 00941 [place] BESSON, OUTPATIEN 9 9 ALICIA SOLOMON A T VISIT INTERNAL 15 MED MINUTES OFFICE 24172 [facility], OUTPATIEN 9 9 [facility] [place] J T VISIT CLINIC OF 15 MINUTES [facility] EMERGENCY 04975 SHARON 9 9 [facility] DEPARTMEN INC T VISIT MODERATE SEVERITY [facility]OSPITAL [facility] - 9 9 [facility] OUTPATIEN INC T EMERGENCY 32439 ZACHARY GALLEGOS, 9 9 EMERGENCY [facility] T VISIT HIGH/URGE ASSOCIATE NT S SEVERITY HOSPITAL [facility] - 9 9 [facility] OUTPATIEN INC T EMERGENCY 94679 [facility] 9 9 [facility] DEPARTMEN INC T VISIT LOW/MODER SEVERITY OFFICE 43694 [place] B[place], OUTPATIEN 9 9 ALICIA SOLOMON A T VISIT INTERNAL 15 MED MINUTES INITIAL 79341 [facility], PREVENTIV 9 9 [facility] [place] J E [facility] EMMY AGE 12-17 [facility] YR OFFICE 61716 [place] B[place], OUTPATIEN 9 9 ALICIA SOLOMON A T VISIT INTERNAL 15 MED MINUTES OFFICE 66747 [place] MCKEMIE OUTPATIEN 9 9 [employer]HROP , T VISIT INTERNAL SAW F 10 MED MINUTES HOSPITAL [facility]ON - 9 9 [facility] OUTPATIEN INC T OFFICE 05609 [place] MCKEMIE OUTPATIEN 9 9 ALICIA LOBATO T VISIT INTERNAL SAW F 15 MED MINUTES HOSPITAL [facility]ON - 9 9 [facility] OUTPATIEN INC T EMERGENCY 37335 [facility], [address] [facility] EMERGENCY T VISIT [facility] MODERATE [facility]VERITY EMERGENCY 21961 [facility] 9 9 N [facility] T VISIT [facility]OSP[facility] LOW/MODER [facility]VERITY [facility] - 9 9 N OUTPATIEN [facility] OFFICE 73559 [facility] 9 9 ALICIA T VISIT INTERNAL SAW F 15 MED MINUTES [facility] - 9 9 [facility] T OFFICE 04562 [facility] OUT[facility] 9 9 , EVA VELASQUEZ T VISIT 15 MINUTES [facility] - 8 8 [facility] T OFFICE 01082 [facility] 8 8 Zachary VARGAS JR VISIT INTERNAL SAW F 15 MED MINUTES [facility] - 8 8 [facility] INC T OFFICE 55089 [facility] 8 8 Zachary VARGAS JR VISIT INTERNAL SAW F 15 MED MINUTES [facility] 8 8 [facility] OUT[facility]EN [facility] T EMERGENCY 42265 [facility] 8 8 [facility] VISIT LOW/MODER SEVERITY [facility] 8 8 [facility] T EMERGENCY 09301 [facility] 8 8 [facility] T VISIT MODERATE SEVERITY OFFICE 33529 [facility] 8 8 , EVA VELASQUEZ ION NEW/ESTAB PATIENT 60 MIN OFFICE 32326 [facility] 8 8 [facility] JR, T VISIT INTERNAL SAW F 15 MED MINUTES OFFICE 43143 [facility] 8 8 Zachary VARGAS JR VISIT INTERNAL SAW F 15 MED MINUTES OFFICE 22316 [facility], OUTPATIEN 8 8 ALICIA CARNES T VISIT INTERNAL 10 MED MINUTES OFFICE 00629 [facility] 8 8 Zachary VARGAS JR VISIT INTERNAL SAW F 15 MED MINUTES [facility] T EMERGENCY 62050 ZAY GARCIA, 8 8 [employer] E DEPARTMEN CORPORATI T VISIT ON HIGH/URGE NT SEVERITY EMERGENCY 69778 [facility] 8 8 [facility] DEPARTMEN INC T VISIT MODERATE SEVERITY [facility] - 8 8 [facility] INC T OFFICE 73792 [facility] 8 8 Zachary VARGAS JR VISIT INTERNAL SAW F 15 MED MINUTES [facility] 8 8 [facility] INC T EMERGENCY 19146 [facility] 8 8 [facility] DEPARTMEN INC T VISIT MODERATE SEVERITY EMERGENCY 65316 ZAY GARCIA, 8 8 [employer] E DEPARTMEN CORPORATI T VISIT ON HIGH/URGE NT SEVERITY OFFICE 89422 [facility] 8 8 Zachary VARGAS JR VISIT INTERNAL SAW F 15 MED MINUTES OFFICE 77626 [facility] 8 8 Zachary VARGAS JR VISIT INTERNAL SAW F 15 MED MINUTES OFFICE 00823 [facility] 8 8 Zachary VARGAS JR VISIT INTERNAL SAW F 15 MED MINUTES EMERGENCY 61610 [facility] 8 8 [facility] DE[facility] T VISIT MODERATE SEVERITY [facility] 8 [facility] T OFFICE 90623 [facility] 8 8 ALICIA LOBATO, T VISIT INTERNAL SAW F 15 MED MINUTES [facility] 8 [facility] T OFFICE 64537 [facility] 8 8 ALICIA JR, T VISIT INTERNAL SAW F 15 MED MINUTES [facility] 8 [facility] T OFFICE 24634 [facility] 8 8 ALICIA JR, T VISIT INTERNAL SAW F 15 MED MINUTES [facility] 8 8 [facility] T OFFICE 67197 [facility] 8 8 ALICIA LOBATO, T VISIT INTERNAL SAW F 15 MED MINUTES OFFICE 52322 [facility] 8 8 ALICIA JR, T VISIT INTERNAL SAW F 15 MED MINUTES OFFICE 41348 [facility] 8 8 ALICIA JR, T VISIT INTERNAL SAW F 15 MED MINUTES OFFICE 12604 [facility] 8 8 ALICIA JR, T VISIT INTERNAL SAW F 15 MED MINUTES
--- OUTSIDE RECORDS SUMMARY | 2016-08-31 21:44 | External Medical Summary Rpt ---
Author Author , [facility] Address Unknown Phone [email or web address] Immunization Name Date Rout CVX Reac Dose Comm Prov Is Faci e tion ent ider Refu lity Give sed n Td 06- 9 999 Hist H149 No H149 (sylvia 0-20 ori lt), 03 al Info adso rmat rbed ion - Sour ce Unsp ecif ied Hep 03- 8 999 Hist H149 No H149 B, 1- oric ped/ 03 al adol Info rmat ion - Sour ce Unsp ecif ied Hep 09-2 8 999 Hist H149 No H149 B, 3-20 ori ped/ 02 al adol Info rmat ion - Sour ce Unsp ecif ied
--- OUTSIDE RECORDS SUMMARY | 2016-08-31 21:44 | External Medical Summary Rpt ---
Author Author , [facility] Address Unknown Phone [email or web address] Immunization Name Date Rout CVX Reac Dose [...]
[2016-08-31 22:12] LABS: HEMOGLOBIN 13.1 g/dL (12.2-16.2); LYMPH # 0.7 K/mm3 (0.7-4.5); LYMPH % 19.5 % (10-50.0)
[2016-09-01] MEDS ORDERED: ZITHROMAX Z PA250 MG PO (00:06)
[2016-09-01 00:18] VITALS: BP 113/78
== END 2016-09-01 00:18 | disposition home or self-care (01) ==
LOC: ER 20:43
PROVIDERS: Emergency Medicine
DX: R50.9 Fever, unspecified (principal)